=== PATIENT | female | born 1935 | race African-American/Black ===

== ENCOUNTER 2016-07-07 20:34 | Emergency (ER) | payer OTHER ==
--- NOTE | 2016-07-07 21:20 | PROVIDER DOCUMENTATION ---
HPI-Female /OB/Breast - General Chief Complaint: Female Stated Complaint: Time Seen by Provider: 07/07/16 20:55 Source: reports: patient, family (Daughter) Allergies/Adverse Reactions: Patient Allergies Allergy/AdvReac Type Severity Reaction Status Date / Time No Known Allergies Allergy Verified 07/07/16 21:51 Home Medications: Allopurinol 100 mg PO DAILY 05/09/16 Amitriptyline [Elavil] 2 tab PO HS 05/09/16 Amitriptyline [Elavil] 25 mg PO QAM 05/09/16 Amlodipine [Norvasc] 10 mg PO DAILY 05/09/16 Ergocalciferol (Vitamin D2) [Vitamin D2] 50,000 unit PO Q7D 05/09/16 Furosemide 20 mg PO DAILY 05/09/16 Gabapentin 300 mg PO BID 05/09/16 Metformin [Glucophage] 850 mg PO BID CC 05/09/16 Metoprolol [Lopressor] 50 mg PO DAILY 05/09/16 - History of Present Illness-Female /OB Nature of Presenting Problem: Pt is a 81 yof who presents to ER with CC of lower back pain, dysuria, N, headache, foul odor when urinating x1 week. Location of complaint: reports: right flank, left flank Radiation: reports: none Quality of Pain: reports: burning Severity in ED: reports: mild Onset/Duration: reports: 1 week ago Timing: reports: still present Vaginal Symptoms: reports: foul odor, itching, other (burning urination) Vaginal Bleeding Amount: None Urinary Symptoms: reports: dysuria, hematuria, hesitancy, retention, low back pain Associated Symptoms: reports: back/neck pain, nausea. denies: fatigue, fever/ chills, vomiting Review of Systems - Adult - REVIEW OF SYSTEMS - ADULT Constitutional: denies: chills, fever, fatique Eyes: reports: no symptoms reported Ears, Nose, Mouth & Throat: reports: no symptoms reported Cardiovascular: reports: no symptoms reported Respiratory: reports: no symptoms reported Gastrointestinal: reports: nausea. denies: abdominal pain, hematemesis, constipation, diarrhea, difficulty swallowing, frequent heartburn, poor appetite , rectal bleeding, vomiting Genitourinary: reports: dysuria, flank pain, hematuria, urinary retention, other (burning urination; foul odor when urinating) Musculoskeletal: reports: no symptoms reported Integumentary: reports: no symptoms reported Neurological: reports: no symptoms reported Psychiatric: reports: no symptoms reported Endocrine: reports: no symptoms reported Hematologic/Lymphatic: reports: no symptoms reported Allergic/Immunologic: reports: no symptoms reported All Other Systems: Reviewed and Negative Past History - Adult - PAST MEDICAL HISTORY-ADULT Review of Records: reports: Nursing Assessment Review, Medications Reviewed - IMMUNIZATION STATUS Childhood Immunizations: See Nurse Assessment Flu Vaccine: See Nurse Assessment Physical Exam-General - PHYSICAL EXAM-ADULT Initial Vital Signs Reviewed: Yes - CONSTITUTIONAL General Appearance: appears well, alert, mild distress - RESPIRATORY Respiratory: chest non-tender, lungs clear, normal breath sounds - CARDIOVASCULAR Cardiovascular: normal peripheral pulses, regular rate, rhythm - LYMPHATIC Lymphatic: no adenopathy - MUSCULOSKELETAL Back Exam: no vertebral tenderness, CVA tenderness (bilateral) Extremity: normal range of motion, non-tender, normal gait - SKIN Integumentary: normal color, normal turgor, warm/dry - NEUROLOGIC Neurologic: grossly normal, no motor/sensory deficits - PSYCHIATRIC Psych/Mental Status: normal mood/affect, normal thought content, normal thought process, oriented x 3 Progress - PLAN OF CARE/RESULTS Progress/Plan/Lab Results: Vital Signs - 24 hr 07/07/16 20:38 Temperature 97.3 F L Pulse Rate 57 L Respiratory 18 Rate Blood Pressure 168/56 O2 Sat by Pulse 98 Oximetry Orders Category Date Time Status FSBS/Accucheck Result NOW Care 07/07/16 20:55 Active UA NIMS W/REFLEX CULT [URINALYSIS] Stat Lab 07/07/16 21:55 Completed CefTRIAXONE [Rocephin] Med 07/07/16 22:37 Once 1 gm IM NOW ONE Lidocaine 1% Pf [Xylocaine-Mpf 1%] Med 07/07/16 22:37 Once 5 ml INJ NOW ONE Laboratory Tests 07/07/16 21:55 Urine Source CATH Urine Color BROWN Urine Turbidity CLEAR Urine pH 5.0 Ur Specific [place] 1.016 Urine Protein NEGATIVE Ur Glucose (Stick) NEGATIVE Ur Ketones (Stick) NEGATIVE Urine Blood NEGATIVE Urine Nitrite POSITIVE A Urine Bilirubin NEGATIVE Urobilinogen Dipstick 2 A Urine Leukocytes NEGATIVE Urine WBC (Auto) <10 Urine RBC (Auto) <10 U Epithel Cells (Auto) <10 Urine Bacteria (Auto) NEGATIVE Departure - Departure Time of Disposition Order: 22:37 DIAGNOSIS: UTI (urinary tract infection) Qualifiers: Urinary tract infection type: site unspecified Hematuria presence: with hematuria Qualified Code(s): N39.0 - Urinary tract infection, site not specified ; R31.9 - Hematuria, unspecified Disposition: HOME 01 Certified Medical Emergency: Emergent Condition: Stable Additional Instructions: ED Follow Up Instructions: You have been treated by a care provider in the Emergency Department. These instructions are being provided to you so you can have an understanding of how to care for yourself upon discharge. Upon discharge from the Emergency Department, you are responsible for making arrangements for follow-up care by a physician of your choice. Take all prescribed medications as directed. Return to the Emergency Department immediately for any new or worsening symptoms. You may call the Physician Referral phone number at [phone] to obtain a list of Physicians who are taking new patients. Attestation - Scribe Verification/Attestation Scribe:: Abebe Gonzalez Acting as Scribe for:: Gunner Barger Scribe documention review:: This chart was documented by a scribe and accurately reflects the service the provider performed and the decisions made by the provider.
[2016-07-07 22:05] LABS: URINE MICRO REVIEW NEEDED? NO; URINE SOURCE CATH
[2016-07-07 22:19] LABS: BILIRUBIN URINE NEGATIVE (NEGATIVE); BLOOD URINE NEGATIVE (NEGATIVE); COLOR BROWN; GLUCOSE URINE NEGATIVE (NEGATIVE); LEUKOCYTES URINE NEGATIVE (NEGATIVE); NITRITE URINE POSITIVE (NEGATIVE); PROTEIN URINE NEGATIVE (NEGATIVE); SP GRAVITY URINE 1.016; TURBIDITY URINE CLEAR (CLEAR); UROBILINOGEN URINE 2 mg/dL (NORMAL)
[2016-07-07 22:21] LABS: UR EPITHELIAL CELLS <10 /HPF (<10); URINE BACTERIA NEGATIVE /HPF; URINE CULTURE NEEDED? YES; URINE RBC <10 /HPF (<10); URINE WBC <10 /HPF (<10)
[2016-07-07] MEDS ORDERED: XYLOCAINE-MPF 1% INJ ONE (22:37)
[2016-07-07] MEDS ORDERED: ROCEPHIN IM ONE (22:37)
[2016-07-07] MEDS ORDERED: TYLENOL PO ONE (22:43)
[2016-07-07 23:05] VITALS: BP 117/39
== END 2016-07-07 23:27 | disposition home or self-care (01) ==
LOC: ED 20:34
DX: N39.0 Urinary tract infection, site not specified (principal); R31.9 Hematuria, unspecified; R30.0 Dysuria; M54.5 Low back pain; R39.11 Hesitancy of micturition; R33.9 Retention of urine, unspecified; R11.0 Nausea; R82.90 Unspecified abnormal findings in urine; Z79.899 Other long term (current) drug therapy; Z79.01 Long term (current) use of anticoagulants
CPT/HCPCS: 81001; 82948; 87088; 96372; J0696

== ENCOUNTER 2018-11-22 05:08 | Inpatient (IN) ==
[2018-11-14 09:09] LABS: HEMATOCRIT 34.4 % (37.0-47.0); MCH 31.9 PG (27-31); MCV 99.7 FL (81-99); MPV 10.9 FL (7.4-10.4); RBC 3.45 XMIL (4.2-5.4); RDW 14.4 % (11.5-14.5); WBC 7.43 X1000 (4.8-10.8)
--- NOTE | 2018-11-14 09:22 | EKG Report ---
Test Performed on : 11/14/2018 08:28:36 AM Test Reason : pat Blood Pressure : / mmHG Vent. Rate : 064 BPM Atrial Rate : 064 BPM P-R Int : 250 ms QRS Dur : 088 ms QT Int : 434 ms P-R-T Axes : 020 011 157 degrees QTc Int : 447 ms Sinus rhythm. with 1st degree AV block. Low voltage QRS Cannot rule out Anterior infarct (cited on or before 11-OCT-2017) Abnormal ECG When compared with ECG of 11-OCT-2017 09:48, Nonspecific T wave abnormality now evident in Lateral leads Confirmed by Edgardo VILLAFUERTE, Gerard Heath ([id number]) on 11/15/2018 10:54:07 AM
[2018-11-14 09:41] LABS: AGAP 12; BUN 25 mg/dL (8-22); CHLORIDE 103 mmol/L (98-107); COSMO 288; ESTIMATED GFR > 60; GLUCOSE 101 mg/dL (70-104); POTASSIUM 3.7 mmol/L (3.5-5.1); SODIUM 142 mmol/L (136-145); TCO2 27 mmol/L (25-35)
[2018-11-22] MEDS ORDERED: PEPCID ONE (05:42)
[2018-11-22] MEDS ORDERED: MEFOXIN 2 GM/NS 2 GM/50 ML IVPB ONE (05:42)
[2018-11-22] MEDS ORDERED: LR 1,000 ML ONE ×3 (05:42→09:54)
[2018-11-22] MEDS ORDERED: FENTANYL ONE (06:29)
[2018-11-22] MEDS ORDERED: DIPRIVAN 1% ONE (06:30)
[2018-11-22] MEDS ORDERED: SODIUM CHLORIDE 0.9% ONE (06:47)
[2018-11-22] MEDS ORDERED: XYLOCAINE 1% ONE (06:48)
[2018-11-22] MEDS ORDERED: MARCAINE 0.25% PF/EPI 1:200,000 ONE (06:48)
[2018-11-22] MEDS ORDERED: QUELICIN (DOSE) ONE (07:12)
[2018-11-22] MEDS ORDERED: NEO-SYNEPHRINE ONE (07:12)
[2018-11-22] MEDS ORDERED: XYLOCAINE-MPF 2% ONE (07:12)
[2018-11-22] MEDS ORDERED: SODIUM CHLORIDE 0.9% 20 ML ONE (07:12)
[2018-11-22] MEDS ORDERED: ZOFRAN ONE (07:12)
[2018-11-22] MEDS ORDERED: ZEMURON ONE ×2 (07:12→07:28)
[2018-11-22] MEDS ORDERED: ROBINUL ONE ×3 (07:12→07:16)
[2018-11-22 07:14] LABS: ALB/GLOB RATIO 1.2; ALBUMIN 4.1 g/dL (3.5-5.0); CALCIUM 9.8 mg/dL (8.8-10.2); CREATININE 1.1 mg/dL (0.5-0.9); POTASSIUM 4.1 mmol/L (3.5-5.1); TOTAL BILIRUBIN 0.41 mg/dL (0.20-1.00); TOTAL PROTEIN 7.6 g/dL (6.3-8.3)
[2018-11-22] MEDS ORDERED: EPHEDRINE ONE (07:22)
[2018-11-22] MEDS ORDERED: NEOSTIGMINE ONE (08:14)
[2018-11-22 09:49] LABS: URINE SOURCE CATH
[2018-11-22] MEDS: DILAUDID ONE ×4 (09:55→10:15)
[2018-11-22 09:57] LABS: BILIRUBIN URINE NEGATIVE (NEGATIVE); BLOOD URINE NEGATIVE (NEGATIVE); COLOR YELLOW; GLUCOSE URINE NEGATIVE (NEGATIVE); KETONE URINE NEGATIVE (NEGATIVE); LEUKOCYTES URINE NEGATIVE (NEGATIVE); NITRITE URINE NEGATIVE (NEGATIVE); PROTEIN URINE NEGATIVE (NEGATIVE); TURBIDITY URINE CLEAR (CLEAR); UROBILINOGEN URINE NORMAL (NORMAL)
[2018-11-22 09:58] LABS: UR EPITHELIAL CELLS <10 /HPF (<10); URINE BACTERIA NEGATIVE /HPF; URINE RBC <10 /HPF (<10); URINE WBC <10 /HPF (<10)
[2018-11-22] MEDS: MORPHINE IV PRN ×3 (11:18→22:39)
[2018-11-22] MEDS: LR 1,000 ML IV SCH (12:05)
--- NOTE | 2018-11-22 12:50 | EMERGENCY ROOM SUMMARY ---
HISTORY OF PRESENT ILLNESS: This is an 83-year-old black female who came in for a cholecystectomy for cholecystitis, I think, and cholelithiasis, and ended up needing an open procedure. I think she had some scar tissue from previous colectomy in the past and so started laparoscopic and went to an open procedure. PAST MEDICAL HISTORY: 1. Hypertension. 2. Diabetes mellitus type 2, I believe. PAST SURGICAL HISTORY: 1. Question whether she has had a right partial colectomy. 2. She has had a hysterectomy. 3. Bilateral salpingo-oophorectomy. ALLERGIES: No known drug allergies. FAMILY HISTORY: There is no history in old reports of family related other than some diabetes. REVIEW OF SYSTEMS: She was unable to give review of systems and is very lethargic at this time. She is postoperative. I do not see history of weight loss, fever. Questionable subjective fever. HEENT: No change in vision or hearing acuity. Respiratory: No increased work of breathing or dyspnea. Cardiovascular: No chest pain or tachy palpitations. Endocrinologic/Hematologic: No significant history. Neurologic: No new focal complaints. PHYSICAL EXAMINATION: Vital Signs: She is in ICU bed 2. She is afebrile, temperature 97.1 degrees, pulse 62, respirations 18, blood pressure 149/68. HEENT: Pupils are equal and round. Lungs: Clear in all lung persaud. Cardiovascular: Regular rhythm and rate without murmur or S3. Weight 242 today. Urine output looks to be good so far today, about 1000 L so. ASSESSMENT AND PLAN: 1. Status post open cholecystectomy. Continue to give IV fluids and watch her hemodynamics. 2. History of diabetes mellitus type 2. Will check pattern sugars. 3. History of hypertension. Of course, follow her hemodynamics and blood pressure. They look stable at this point. She is getting lactated Ringer's at 50 mL an hour, gets morphine for pain. She is on heparin for DVT prophylaxis 5000 units subcutaneously q.8 hours and also has hydrocodone ordered for pain. REVIEW OF LABS: Sodium 142, potassium 4.1, chloride 102, BUN 21, creatinine 1.1, albumin 4.1. Nutrition looks good. Transaminases: AST 18, ALT is 8. So I am going to put her on pattern blood sugars, put her on a sliding scale. I think it would be worthwhile just to check T4, TSH, B12, and folate. We will check hemoglobin A1c in the morning. It might be worthwhile to check a lipid profile too. cc: MD Heladio Henry MD
--- NOTE | 2018-11-22 13:24 | OPERATIVE NOTE ---
PROCEDURE DATE: 11/22/2018 PREOPERATIVE DIAGNOSIS: Cholelithiasis. POSTOPERATIVE DIAGNOSES: 1. Cholelithiasis. 2. Hostile abdomen with dense adhesions. PROCEDURE: Laparoscopic converted to open cholecystectomy. SURGEON: Heladio Acosta MD WIRE LOOP MACHINE OPERATOR: MD Dr. Mary Montes assisted with the entirety of the case. ANESTHESIA: General endotracheal. INTRAOPERATIVE FINDINGS: Dense adhesions. COMPLICATIONS: None apparent at this time in this dictation. ESTIMATED BLOOD LOSS: 150 mL. SPECIMENS REMOVED: Gallbladder. BRIEF HISTORY: An 83-year-old female who presented with elevated liver function tests and cholelithiasis, felt that she would benefit from a cholecystectomy. The risks, benefits, and alternatives were discussed including, but not limited to bleeding, infection, risk of common bile duct injury, bile leak, injury to other organs and possible conversion to open were discussed and documented in the chart. All questions answered. DESCRIPTION OF PROCEDURE: After informed consent was obtained, the patient brought to the operative theater, transferred to the operative table, placed in supine position. General endotracheal anesthesia was then performed without complication. A formal time- out was then performed confirming patient, date, procedure. All were in agreement. At that time, attention was given to the abdomen. We initially tried to make an infraumbilical incision using Optiview technique, but we were unable to get to the fascia, given her abdominal girth. We then went to the right upper quadrant in the epigastric subxiphoid region. Initially, tried to insert a 5 mm trocar in this area. There was some concern on placement of the trocar that we may have gotten into the abdomen and injured the bowel. This was not very obvious, but given the concern of her body habitus and her scar tissue, I felt the safe thing to do would be to convert to open. At this point, Dr. Hernandez entered the case. We made a standard subcostal incision through the muscles into the abdomen. She had dense adhesions from her previous surgeries. It was very hard to see into the abdomen. Her gallbladder was identified and appeared to be grossly normal without cholecystitis. We examined all the bowel in the stomach, the colon and the small bowel in the area where the trocar was placed, I did not see any bowel injury. There were some serosal tear secondary to the adhesions, but we sewed these up primarily with imbrication. Again, I did not see any obvious injury. I did not see any succus or stool in the abdomen. We did irrigate the abdomen copiously and examined thoroughly, but did not see any other signs of injury. We examined for close to an hour to try to see if we could find any other injury, but again did not see any. We did find what felt like lymphadenopathy around what likely is the superior mesenteric vein and artery and potentially close to the aorta. It was densely adhered to the surrounding bowel and the vasculature. I did not think it would be safe to try to remove this or biopsy this, so we elected to leave it alone and probably investigate this at a later point. We then turned our attention to the gallbladder. The liver appeared normal. We grasped the gallbladder did the top- down dissection all the way down to the cystic duct and cystic artery, doubly clipped and ligated the cystic duct and dissected the gallbladder off. We removed it, irrigated out the abdomen. We did place multiple clips on the cystic duct and cystic artery. There was no drainage of bile. We irrigated out the abdomen copiously. Again, we examined the abdomen for any kind of possible signs of bowel injury, did not see any, throughout the entirety of the case I did not see any succus in the abdomen or stool, or gastric contents, or bile. We therefore felt as though we examined the bowel in the area thoroughly enough. We elected to then close the fascia in 2 layers starting on either side of the incision with good fascial closure, although her fascia was somewhat tenuous by the very nature. We then closed the skin with stella. Given the patient's age, comorbidities, we will admit the patient to the ICU. I updated the family on the procedure. cc: MD SELVIN Aranda
[2018-11-22] MEDS: HUMULIN R SUBQ SCH ×2 (15:52→20:22)
--- NOTE | 2018-11-22 20:01 | GENERAL SURGERY PROGRESS NOTE ---
DATE: 11/22/2018 SUBJECTIVE: The patient is doing okay after surgery. Nursing staff reports no major issues. She has a little bit of abdominal discomfort, but this seems to be improving. ASSESSMENT AND PLAN: We will need to monitor her respiratory status in the intensive care unit and her abdominal exam, given the concern for potential bowel injury, even though we did not find one during the operation. We will monitor her closely. cc: Heladio Acosta MD
[2018-11-22] MEDS: HEPARIN SUBQ SCH (20:21)
[2018-11-22] MEDS: ZOFRAN IV PRN (20:26)
[2018-11-23] MEDS: NORCO-10 PO PRN ×2 (00:03→08:55)
[2018-11-23] MEDS: HEPARIN SUBQ SCH ×3 (05:11→22:34)
[2018-11-23] MEDS: ZOFRAN IV PRN ×2 (05:12→11:48)
[2018-11-23 05:45] LABS: BASO# 0.01 X1000 (0.0-0.2); BASO% 0.1 % (0.0-0.8); EOS# 0.01 X1000 (0.0-0.7); EOS% 0.1 % (0.0-10.0); HEMATOCRIT 31.7 % (37.0-47.0); HEMOGLOBIN 10.2 g/dL (12.0-16.0); IMM GRAN# 0.02 X1000 (0.0-0.04); IMM GRAN% 0.2 % (0.0-0.5); LYMPH# 2.07 X1000 (1.2-3.4); LYMPH% 20.9 % (20.5-51.1); MCH 31.3 PG (27-31); MCHC 32.2 g/dL (33-37); MCV 97.2 FL (81-99); MONO# 1.05 X1000 (0.11-0.59); MONO% 10.6 % (1.7-9.3); MPV 10.8 FL (7.4-10.4); NEUT# 6.75 X1000 (1.4-6.5); NEUT% 68.1 % (42.2-75.2); PLT 208 X1000 (130-400); RBC 3.26 XMIL (4.2-5.4); RDW 14.2 % (11.5-14.5); WBC 9.91 X1000 (4.8-10.8)
[2018-11-23 06:21] LABS: FREE T4 0.91 ng/dL (0.93-1.70); TSH 3.97 uIUmL (0.27-4.20)
[2018-11-23 06:22] LABS: HEMOGLOBIN A1C 5.8 % (4.8-6.0)
[2018-11-23] MEDS: LR 1,000 ML IV SCH (06:40)
[2018-11-23 07:01] LABS: AGAP 12; ALB/GLOB RATIO 0.9; ALKALINE PHOSPHATASE 66 U/L (32-104); BUN 13 mg/dL (8-22); CALCIUM 8.6 mg/dL (8.8-10.2); CHLORIDE 102 mmol/L (98-107); CHOLESTEROL 155 mg/dL (0-200); COSMO 280; ESTIMATED GFR > 60; GLUCOSE 148 mg/dL (70-104); GOT 39 U/L (10-30); GPT 16 U/L (10-36); HDL 54 mg/dL (45-65); LDL 79 mg/dL; MAGNESIUM 1.6 mg/dL (1.5-2.7); POTASSIUM 4.4 mmol/L (3.5-5.1); SODIUM 139 mmol/L (136-145); TCO2 25 mmol/L (25-35); TOTAL PROTEIN 6.3 g/dL (6.3-8.3); TRIGLYCERIDES 111 mg/dL (35-135); VLDL 22 mg/dL
[2018-11-23] MEDS: HUMULIN R SUBQ SCH ×4 (07:06→22:18)
--- NOTE | 2018-11-23 08:11 | PROGRESS NOTE ---
DATE: 11/23/2018 SUBJECTIVE: Ms. Elizabeth had a pretty good night. She was using her incentive spirometry and breathing comfortably. OBJECTIVE: Vital signs: Remains afebrile, temperature 98.1 degrees, pulse 67, respirations 20, blood pressure 136/54. HEENT: Pupils are equal and round. Lungs: Clear anterolateral. Cardiovascular: Regular rate without murmur or S3. Abdomen: Soft. Genitourinary: Urine output is 2200 mL. LABORATORY DATA: Blood sugar 139, 148. ASSESSMENT AND PLAN: 1. Status post open cholecystectomy. Seems to be doing well. 2. Diabetes mellitus type 2. Continue to follow sugars. 3. Hypertension. Continue to follow blood pressures. REVIEW OF CURRENT ORDERS: She is on heparin 5000 units subcutaneously q.8 hours, getting lactated Ringer's at 50 mL an hour, morphine 2 to 4 mg IV q.4 hours p.r.n. pain. LABORATORY DATA: From this morning, white count 9910, hematocrit 31, platelet count 208,000. Sodium 139, potassium 4.4, chloride 102, BUN 13, creatinine 1.0. Good urine output. Good renal function. cc: Jaime Vela MD
[2018-11-23] MEDS: MEFOXIN 1 GM/NS 1 GM/50 ML IVPB IV SCH ×2 (09:23→17:47)
--- NOTE | 2018-11-23 22:52 | GENERAL SURGERY PROGRESS NOTE ---
DATE: 11/23/2018 SUBJECTIVE: The patient is doing okay, just feels a little sore in her abdomen. No nausea or vomiting. She is tolerating clear liquids. OBJECTIVE: T-max 100.8 at 11:00 last night. T 98.4 this morning. Pulse, blood pressure, respiratory rate, and O2 saturation all within normal limits. Urine output 1500 mL yesterday. General: She is awake, alert, oriented x4. No acute distress. CV: Regular rate and rhythm. Respiratory: Bilateral breath sounds. No work of breathing. GI: Soft, minimally tender. Incision is clean, dry, intact. LABORATORY: White blood cell count 9.9, hemoglobin 10. Electrolytes reviewed and unremarkable. LFTs only notable for AST of 39. ASSESSMENT AND PLAN: An 83-year-old female, postoperative day 1 open cholecystectomy. We will advance her to a diabetic diet today. Mobilize her to a chair. Start Mefoxin for 24 hours for prophylaxis given the difficulty of the operation yesterday and move her to a regular room. cc: MD Jaime Montes MD
[2018-11-24] MEDS: ZOFRAN IV PRN ×2 (00:47→20:04)
[2018-11-24] MEDS: MEFOXIN 1 GM/NS 1 GM/50 ML IVPB IV SCH ×3 (00:47→16:49)
[2018-11-24] MEDS: LR 1,000 ML IV SCH ×2 (04:22→22:30)
[2018-11-24] MEDS: HEPARIN SUBQ SCH ×3 (05:35→20:04)
[2018-11-24] MEDS: NORCO-10 PO PRN (05:36)
[2018-11-24 06:47] LABS: BASO# 0.01 X1000 (0.0-0.2); BASO% 0.1 % (0.0-0.8); EOS# 0.01 X1000 (0.0-0.7); EOS% 0.1 % (0.0-10.0); HEMATOCRIT 28.7 % (37.0-47.0); HEMOGLOBIN 9.2 g/dL (12.0-16.0); LYMPH# 1.83 X1000 (1.2-3.4); LYMPH% 14.9 % (20.5-51.1); MCH 31.6 PG (27-31); MCHC 32.1 g/dL (33-37); MCV 98.6 FL (81-99); MONO% 10.6 % (1.7-9.3); MPV 11.1 FL (7.4-10.4); NEUT# 9.13 X1000 (1.4-6.5); NEUT% 74.3 % (42.2-75.2); PLT 189 X1000 (130-400); RBC 2.91 XMIL (4.2-5.4); RDW 14.3 % (11.5-14.5); WBC 12.28 X1000 (4.8-10.8)
[2018-11-24 07:14] LABS: CALCIUM 8.7 mg/dL (8.8-10.2); CREATININE 1.1 mg/dL (0.5-0.9); POTASSIUM 4.1 mmol/L (3.5-5.1)
[2018-11-24] MEDS: HUMULIN R SUBQ SCH ×3 (11:47→22:00)
[2018-11-24] MEDS: NORCO-5 PO PRN ×2 (12:02→16:50)
--- NOTE | 2018-11-24 13:51 | PROGRESS NOTE ---
DATE: 11/24/2018 SUBJECTIVE: Ms. Elizabeth is sitting up in a chair. Still has a Gentile catheter in. Daughter is helping her. Seems to be doing well. OBJECTIVE: Vital Signs: Temperature 97.7 degrees, pulse 83, respirations 20, blood pressure 126/45. HEENT: Pupils are equal and round. Lungs: Clear in all lung persaud. Cardiovascular: Regular rhythm and rate without murmur or S3. Abdomen: Soft, nondistended. Wound and stella in incision look good. ASSESSMENT AND PLAN: 1. An 83-year-old female postoperative day 2 for open cholecystectomy. Advancing her diet. Started Mefoxin for 24 hours for prophylaxis given the difficulty with her operation. 2. Diabetes mellitus, type 2. Sugars under good control. 3. Hypertension. Blood pressure is controlled. REVIEW OF HER ORDERS: I do not see any change. She is on cefoxitin 1 g IV q.8 h., heparin 5000 units subcutaneously q.8 h., and lactated Ringer's 50 mL an hour. cc: Jaime Vela MD
--- NOTE | 2018-11-24 14:26 | GENERAL SURGERY PROGRESS NOTE ---
DATE: 11/24/2018 SUBJECTIVE: The patient had a little bit of a restless night and has been coughing some. OBJECTIVE: Vital signs: T-max 100.1 degrees. Current temperature 98.8 degrees. Otherwise vital signs are stable. Urine output 855. General: She is awake, alert, and oriented x3. No acute distress. CV: Regular rate and rhythm. Respiratory: Bilateral breath sounds. No work of breathing. GI: Soft. Minimally tender. Incision is clean, dry, and intact. LABORATORY: White cell count 12, hemoglobin 9, hematocrit 28.7. ASSESSMENT AND PLAN: This is an 83-year-old female postoperative day 2 open cholecystectomy. Overall she is doing okay. We will continue her antibiotics another 24 hours. Start incentive spirometry and ambulation and advance her to a soft diet as tolerated. cc: MD Jaime Montes MD
[2018-11-24] MEDS: PHENERGAN IM PRN (22:23)
[2018-11-25] MEDS: MEFOXIN 1 GM/NS 1 GM/50 ML IVPB IV SCH ×3 (00:38→17:38)
[2018-11-25] MEDS: HEPARIN SUBQ SCH ×3 (06:47→22:19)
[2018-11-25] MEDS: NORCO-5 PO PRN (06:47)
[2018-11-25] MEDS: HUMULIN R SUBQ SCH ×4 (06:52→22:17)
[2018-11-25] MEDS: GLUCOPHAGE PO SCH ×2 (09:29→17:37)
[2018-11-25] MEDS: LASIX PO SCH (09:29)
[2018-11-25] MEDS: KLOR-CON PO SCH (09:29)
[2018-11-25] MEDS: NEURONTIN PO SCH ×3 (09:29→17:37)
--- NOTE | 2018-11-25 11:32 | PROGRESS NOTE ---
DATE: 11/25/2018 SUBJECTIVE: Ms. Elizabeth is sitting up in a chair. Her bowels are rumbling. She is actually on the commode right now. OBJECTIVE: Temperature 98.9 degrees, pulse 78, respirations 20, blood pressure 126/52. Pupils are equal and round. Lungs are clear in all lung persaud. Cardiovascular Examination: Regular rhythm and rate without murmur or S3. Urine output about 2300 mL. ASSESSMENT AND PLAN: 1. Postoperative day #3 from open cholecystectomy. Overall doing well. Continue present antibiotics, incentive spirometry, and ambulation. She is advanced to a soft diet. They are going to check her bladder and see if she needs Gentile catheter back in. 2. Diabetes mellitus type 2. Sugar is under good control. 3. Hypertension. Blood pressure controlled. REVIEW OF ORDERS: She is on heparin 5000 units subcutaneously q.8 hours, Norvasc 10 mg a day, Lasix 40 mg a day, Neurontin 300 mg t.i.d., lactated Ringer 50 mL every hour, cefoxitin 1 g q.8 hours, continue that for now, Glucophage 500 mg b.i.d., metoprolol succinate 50 mg daily, potassium chloride 10 mEq daily, Prilosec 20 mg daily. She gets morphine 2 to 4 mg IV q.4 hours p.r.n. pain. cc: Jaime Vela MD
--- NOTE | 2018-11-25 11:53 | GENERAL SURGERY PROGRESS NOTE ---
DATE: 11/25/2018 SUBJECTIVE: Feels okay. Passing gas. She is tolerating some diet. She had some nausea last night, better with Phenergan. She has been unable to void, apparently since the catheter came out yesterday. No fevers. No tachycardia. OBJECTIVE: Abdomen is obese. Incisions are intact. Is appropriately tender at her incision but no peritonitis. No new labs this morning, glucose 110. ASSESSMENT/PLAN: An 83-year-old female status post open cholecystectomy by Dr. Acosta. Her abdomen is soft. I have asked the nurse to replace the Gentile. She has been unable to void. We will see how she does over the next day or so. I have encouraged her to be out of bed and moving about. She is sitting at the bedside commode today. cc: MD Jaime Paula MD
[2018-11-25] MEDS: TOPROL XL PO SCH (13:28)
[2018-11-25] MEDS: NORVASC PO SCH (13:29)
[2018-11-26] MEDS: MEFOXIN 1 GM/NS 1 GM/50 ML IVPB IV SCH ×4 (01:13→23:43)
[2018-11-26] MEDS: NORCO-5 PO PRN ×2 (05:30→18:56)
[2018-11-26] MEDS: PRILOSEC PO SCH ×2 (05:31→07:31)
[2018-11-26] MEDS: HEPARIN SUBQ SCH ×3 (05:31→21:41)
[2018-11-26] MEDS: HUMULIN R SUBQ SCH ×3 (07:50→15:54)
--- NOTE | 2018-11-26 08:34 | GENERAL SURGERY PROGRESS NOTE ---
DATE: 11/26/2018 SUBJECTIVE: Patient seems to be doing alright. She does have a low-grade fever to 100.9 degrees. She is complaining of left leg pain. She is tolerating her diet. No real significant abdominal pain besides appropriate postoperative pain. She is having bowel movements. She is passing gas. OBJECTIVE: Vital Signs: Most recent temperature 100.9 degrees. Remainder of vitals have been stable. General: No acute distress. Cardiovascular: Regular rate and rhythm. Lungs: Grossly clear. Abdomen: Soft, appropriately tender. No peritoneal signs. Incision seems to be healing okay. Extremities: The left leg seems to be slightly swollen compared to the right. ASSESSMENT AND PLAN: An 83-year-old female status post laparoscopic, converted to open cholecystectomy. Postop state. At this time she does have a low-grade fever. We will continue incentive spirometer. We will get an ultrasound of her leg given the discrepancy. We will also try to remove her Gentile catheter, but check a urinalysis on it. She is on antibiotics. She is on a regular diabetic diet. She does have SCDs ordered although she did not actively have them on. She is getting heparin 3 times a day. We will continue to monitor and follow up with these results. cc: MD Jaime Aranda MD
[2018-11-26] MEDS: MORPHINE IV PRN ×3 (10:05→23:42)
[2018-11-26] MEDS: GLUCOPHAGE PO SCH ×2 (10:07→16:55)
[2018-11-26] MEDS: KLOR-CON PO SCH (10:07)
[2018-11-26] MEDS: LASIX PO SCH (10:07)
[2018-11-26] MEDS: TOPROL XL PO SCH ×2 (10:07→14:54)
[2018-11-26] MEDS: NORVASC PO SCH ×2 (10:07→14:54)
[2018-11-26] MEDS: NEURONTIN PO SCH ×3 (10:07→21:41)
[2018-11-26 10:20] LABS: URINE SOURCE CATH
[2018-11-26 10:24] LABS: BILIRUBIN URINE NEGATIVE (NEGATIVE); BLOOD URINE SMALL (NEGATIVE); COLOR YELLOW; GLUCOSE URINE NEGATIVE (NEGATIVE); KETONE URINE NEGATIVE (NEGATIVE); LEUKOCYTES URINE SMALL (NEGATIVE); NITRITE URINE NEGATIVE (NEGATIVE); PROTEIN URINE 70 mg/dL (NEGATIVE); SP GRAVITY URINE 1.021; TURBIDITY URINE CLEAR (CLEAR); UROBILINOGEN URINE 3 mg/dL (NORMAL)
[2018-11-26 10:25] LABS: UR EPITHELIAL CELLS <10 /HPF (<10); URINE BACTERIA NEGATIVE /HPF; URINE RBC <10 /HPF (<10); URINE WBC <10 /HPF (<10)
--- NOTE | 2018-11-26 13:23 | Diag Imaging Result Doc PS360 ---
LOWER LEG-LEFT - 11/26/2018 INDICATION: leg/ankle pain TECHNIQUE: Two views COMPARISON: None FINDINGS: Bones are intact and normally aligned. There is a left knee prosthesis in good position. No complication here. There is some calcaneal spurring at the Achilles tendon insertion. IMPRESSION: Calcaneal degenerative spurring. Electronically signed by Rj Barakat 11/26/2018 1:20 PM
--- NOTE | 2018-11-26 13:57 | PROGRESS NOTE ---
DATE: 11/26/2018 SUBJECTIVE: Ms. Elizabeth is resting in bed. She is comfortable. No abdominal pain. She has had a lot of gas, passed a lot of gas but no bowel movement yet. Remains afebrile. PHYSICAL EXAMINATION: Temperature 99.3 degrees, pulse 80, respirations 18, blood pressure 140/56. Pupils are equal and round. Lungs are clear in all lung persaud anterolateral. Cardiovascular Examination: Regular rhythm and rate without murmur or S3. Abdomen is soft. Positive bowel sounds in all quadrants. Urine output was 2000 mL. DIAGNOSTIC DATA: She had a lower extremity x-ray, calcaneus degenerative spurring. Her feet hurt when she when she puts pressure on them at this time. ASSESSMENT AND PLAN: 1. Status post laparoscopic and then converted to open cholecystectomy. Does have a low-grade fever. Continue incentive spirometry. Try to remove the catheter when ultrasound shows the bladder is emptying. Continue sequential compression devices. 2. Diabetes mellitus type 2. Sugar is under good control. 3. Hypertension. Blood pressure under good control. LABS: From the reviewed. Hematocrit 28, hemoglobin 9.2. Blood sugars 114, 123, 118. REVIEW OF ORDERS: Getting heparin 5000 units subcutaneously q.8 hours, Norvasc 10 mg a day, Lasix 40 mg a day, Neurontin 300 mg 3 times a day, hydrocodone 5 q.12 hours p.r.n. pain, lactated Ringer's 50 mL an hour, cefoxitin 1 g IV q.8, Glucophage 500 mg b.i.d., metoprolol extended release 50 mg daily. She gets potassium chloride 10 mEq extended release daily. Her diet has been advanced to a diabetic diet. Appears to be making good progress. cc: Jaime Vela MD
[2018-11-26] MEDS: LR 1,000 ML IV SCH (17:09)
[2018-11-26] MEDS: ZOFRAN IV PRN (17:09)
[2018-11-27] MEDS ORDERED: TYLENOL PO ONE (00:01)
[2018-11-27] MEDS: HUMULIN R SUBQ SCH ×5 (00:32→21:41)
[2018-11-27] MEDS: MEFOXIN 1 GM/NS 1 GM/50 ML IVPB IV SCH ×4 (00:36→21:33)
[2018-11-27] MEDS: NORCO-5 PO PRN ×4 (06:02→21:33)
[2018-11-27] MEDS: HEPARIN SUBQ SCH ×3 (06:02→21:33)
[2018-11-27] MEDS: PRILOSEC PO SCH (06:03)
--- NOTE | 2018-11-27 07:42 | GENERAL SURGERY PROGRESS NOTE ---
DATE: 11/27/2018 SUBJECTIVE: The patient seems to be doing okay. She has some left leg pain. Preliminary report on the ultrasound does not show a DVT. There may be a ruptured Rios cyst. She did have an extremity x-ray, which did not show any fracture. Otherwise, the patient is doing about the same. OBJECTIVE: Vital Signs: The patient's current temperature is 98.2 degrees, but a temperature max of 102.6. Remainder of vital signs have been stable. General: No acute distress. Cardiovascular: Regular rate and rhythm. Lungs: Grossly clear. Abdomen: Soft. Appropriately tender in the subcostal incision. No peritoneal signs. LABORATORY DATA: None this morning as of yet. ASSESSMENT AND PLAN: An 83-year-old female status post open cholecystectomy. Open cholecystectomy. At this time, the patient does have a postoperative fever. Will get a chest x-ray. We will get a CT scan. Her urinalysis was not very revealing. Her ultrasound did not show deep venous thrombosis. Will continue current treatment otherwise. Will reassess her pain medicine. Will follow up with above. cc: MD Jaime Aranda MD
--- NOTE | 2018-11-27 09:36 | Diag Imaging Result Doc PS360 ---
EXAM: CHEST-PORTABLE HISTORY: fever TECHNIQUE: Chest single view COMPARISON: 11/17/2017 FINDINGS: Poor inspiratory effort. The heart is enlarged. Mild central vascular distention. Atelectasis in the lung bases. No large pleural effusions. No consolidation. IMPRESSION: Cardiomegaly with mild vascular distention and basilar atelectasis Electronically signed by Santhosh Hennessy 11/27/2018 9:33 AM
[2018-11-27] MEDS: KLOR-CON PO SCH (10:29)
[2018-11-27] MEDS: NEURONTIN PO SCH ×3 (10:29→21:33)
[2018-11-27] MEDS: TOPROL XL PO SCH ×2 (10:30→10:31)
[2018-11-27] MEDS: GLUCOPHAGE PO SCH ×2 (10:30→16:21)
[2018-11-27] MEDS: NORVASC PO SCH ×2 (10:30→10:33)
[2018-11-27] MEDS: LASIX PO SCH (10:30)
--- NOTE | 2018-11-27 10:37 | Diag Imaging Result Doc PS360 ---
EXAM: CT ABD/PELVIS W/PO AND IV CON 11/27/2018 HISTORY: postoperative fever TECHNIQUE: This exam was performed using automated exposure control, adjustment of mA or kV according to patient size, and/or use of iterative reconstruction technique. COMMENT: The current examination is compared with 09/05/2017. There is subsegmental atelectasis in both lung bases particularly in the lower lobes which was not present at the time the previous study. The spleen adrenal glands pancreas and kidneys are stable in appearance compared to the previous examination. The aorta is not distended. The mesenteric and renal arteries are patent. There has been cholecystectomy since the previous study. There is a seroma/hematoma in the gallbladder fossa. There is some stool in the colon. There is no evidence of bowel obstruction. There has been partial resection of the right colon. There is no evidence of significant adenopathy. There is some questionable mucosal thickening in the gastric fundus however the stomach is not well distended. This appearance is similar to the previous study. There is fluid in the subcutaneous fat over the right lower and midabdomen which may represent hematoma formation. There is a well-circumscribed fluid collection anterior to the lower portion of the right rectus abdominis extending to the umbilicus. There is some enhancement of the almendarez of this fluid collection but no gas bubbles are present. This may represent a seroma or hematoma. It measures 7.7 cm in greatest axial dimension. Pelvis: There is gas and stool in the rectum and sigmoid colon. There is no evidence of free fluid. There has been hysterectomy. The urinary bladder is unremarkable. There are degenerative changes in both hips. There is vacuum joint phenomenon in the sacroiliac joints and at the L5-S1 level. There is apparent spinal stenosis at L3-4 and L4-5. IMPRESSION: Postsurgical changes in the anterior abdominal and pelvic wall on the right as described. Post operative seroma and/or hematoma in the gallbladder fossa. Bibasilar atelectasis. Electronically signed by Abdirizak Camacho 11/27/2018 10:35 AM
--- NOTE | 2018-11-27 12:42 | PROGRESS NOTE ---
DATE: 11/27/2018 SUBJECTIVE: Ms. Elizabeth is feeling better. She was sitting up, eating some lunch, and had no nausea, no abdominal pain. OBJECTIVE: Vital Signs: Temp 98.4 degrees, pulse 69, respirations 18, blood pressure 117/49. HEENT: Pupils are equal and round. Lungs: Clear in all lung persaud. Cardiovascular: Regular rhythm and rate without murmur or S3. Abdomen: Soft, nontender. Incision looks good. Her feet feel better, less swelling in the feet. Urine output 2200 mL. ASSESSMENT AND PLAN: 1. Status post open cholecystectomy. She did have a little postoperative fever. Repeated a chest x-ray. The lungs sound clear. Will plan to get a CT scan of the abdomen. Her ultrasound did not show any deep venous thrombosis, and she seems to be making good progress. Chest x-ray from this morning shows cardiomegaly with mild vascular distention and basilar atelectasis. 2. Diabetes mellitus type 2. Sugar is under good control. 3. Hypertension. Blood pressures look good. REVIEW OF ORDERS: Her Gentile catheter is out. She is voiding well by report. She is on Norvasc 10 mg a day, heparin 5000 units subcutaneously every 8 hours, Lasix 40 mg a day, Neurontin 300 mg 3 times a day, hydrocodone 5 mg every 4 hours p.r.n., lactated Ringer's 50 mL an hour, cefoxitin 1 gram every 8 hours, Glucophage 500 mg b.i.d., metoprolol 50 mg a day, Prilosec 20 mg a day. cc: Jaime Vela MD
[2018-11-27 14:40] LABS: I-STAT CREATININE 0.9 mg/dL (0.6-1.3)
--- NOTE | 2018-11-27 16:18 | Extremity Venous Study ---
PROCEDURE NAME: Venous U/S Left Leg - 11/26/2018 PROCEDURE: Left lower extremity venous study. DATE OF STUDY: 11/26/2018. REQUESTING PHYSICIAN: Dr. Acosta. COLLAR SETTER: Sergo. INDICATIONS: Swelling and pain, left leg. EQUIPMENT: [employer] E 9 ultrasound system with a 9 L-D transducer. FINDINGS: Images of the left lower extremity venous system comparison shot to the right common femoral vein were obtained in both sagittal and transverse planes. Doppler was used to evaluate veins for spontaneity, phasicity, respiratory excursion, and digital augmentation. RESULTS: Possible ruptured cyst in the popliteal fossa on the left side, but otherwise no acute pathology. No superficial or deep venous thrombosis noted. INTERPRETATION: Possible ruptured cyst on the left side of the popliteal fossa, but no obvious superficial or deep venous thrombosis. cc: MD Jaime Aranda MD
[2018-11-28] MEDS: HEPARIN SUBQ SCH ×3 (04:39→22:35)
[2018-11-28] MEDS: MEFOXIN 1 GM/NS 1 GM/50 ML IVPB IV SCH ×3 (04:39→14:41)
[2018-11-28] MEDS: PRILOSEC PO SCH ×2 (04:39→06:01)
[2018-11-28] MEDS: NORCO-5 PO PRN ×2 (04:39→18:49)
[2018-11-28] MEDS: HUMULIN R SUBQ SCH ×5 (06:47→22:39)
[2018-11-28 06:57] LABS: BASO# 0.02 X1000 (0.0-0.2); BASO% 0.2 % (0.0-0.8); EOS# 0.25 X1000 (0.0-0.7); EOS% 2.1 % (0.0-10.0); HEMOGLOBIN 8.2 g/dL (12.0-16.0); IMM GRAN# 0.09 X1000 (0.0-0.04); IMM GRAN% 0.8 % (0.0-0.5); LYMPH# 2.09 X1000 (1.2-3.4); LYMPH% 17.7 % (20.5-51.1); MCH 30.9 PG (27-31); MCHC 31.5 g/dL (33-37); MCV 98.1 FL (81-99); MONO# 1.22 X1000 (0.11-0.59); MONO% 10.3 % (1.7-9.3); MPV 10.5 FL (7.4-10.4); NEUT# 8.16 X1000 (1.4-6.5); NEUT% 68.9 % (42.2-75.2); PLT 262 X1000 (130-400); RBC 2.65 XMIL (4.2-5.4); RDW 13.8 % (11.5-14.5); WBC 11.83 X1000 (4.8-10.8)
[2018-11-28] MEDS: TOPROL XL PO SCH (08:11)
--- NOTE | 2018-11-28 09:49 | GENERAL SURGERY PROGRESS NOTE ---
DATE: 11/28/2018 SUBJECTIVE: Patient doing about the same. OBJECTIVE: Vital Signs: Temperature max 100.0. Temperature current 98.9. Remainder of vital signs appear stable. General: No acute distress. Cardiovascular: Regular rate and rhythm. Lungs: Grossly clear. Abdomen: Soft, appropriately tender. Incision is healing well. LABORATORY: Currently pending. CT scan independently reviewed and radiology report reviewed. Does not appear to be a hematoma. There appears to be more of a seroma. ASSESSMENT AND PLAN: An 84-year-old female status post open cholecystectomy. 1. Status post open cholecystectomy. At this time, CT scan did not seem to suggest an abscess. We will continue to monitor. She is on antibiotics. 2. We will get respiratory to see her for breathing treatments. 3. Clinically, I think she is doing better. 4. We will get Colace for bowel stimulation. 5. She needs to get up and move around with physical therapy. We will see if they can see her today. cc: MD Bay Aranda MD
[2018-11-28] MEDS: NEURONTIN PO SCH ×3 (10:05→22:35)
[2018-11-28] MEDS: GLUCOPHAGE PO SCH ×2 (10:05→18:14)
[2018-11-28] MEDS: NORVASC PO SCH (10:05)
[2018-11-28] MEDS: LASIX PO SCH (10:05)
[2018-11-28] MEDS: KLOR-CON PO SCH (10:05)
[2018-11-28] MEDS: COLCRYS PO SCH (10:08)
[2018-11-28] MEDS: DUONEB (A & A) INH PRN ×3 (11:00→23:15)
[2018-11-28] MEDS: PHENERGAN IM PRN ×2 (12:23→12:33)
[2018-11-28 15:36] LABS: AGAP 12; CHLORIDE 99 mmol/L (98-107); POTASSIUM 3.6 mmol/L (3.5-5.1); SODIUM 138 mmol/L (136-145); TCO2 27 mmol/L (25-35)
[2018-11-28 15:37] LABS: BUN 13 mg/dL (8-22); CALCIUM 8.8 mg/dL (8.8-10.2); COSMO 276; ESTIMATED GFR > 60; GLUCOSE 107 mg/dL (70-104)
[2018-11-28] MEDS: ZOFRAN IV PRN (16:00)
[2018-11-28] MEDS: TYLENOL PO PRN (16:40)
[2018-11-28] MEDS: ZOSYN 3.375 GM in NS 50 ML IV SCH ×2 (16:42→22:39)
--- NOTE | 2018-11-28 17:00 | Diag Imaging Result Doc PS360 ---
EXAM: CHEST-PORTABLE 11/28/2018 HISTORY: Fever, SOB TECHNIQUE: AP portable at 1647 COMMENT: There is cardiomegaly. There is apparent atelectasis in the right lower lobe. The atelectasis previously present on 11/27/2018 and the left base has resolved and there has been improvement on the right. IMPRESSION: Improved atelectasis. Electronically signed by Abdirizak Camacho 11/28/2018 4:57 PM
[2018-11-28] MEDS: ZYVOX 600 MG/D5W 600 MG/300 ML IVPB IV SCH (17:43)
[2018-11-28] MEDS: NS 1,000 ML IV SCH (17:43)
--- NOTE | 2018-11-28 18:04 | PROGRESS NOTE ---
DATE: 11/28/2018 SUBJECTIVE: This patient is complaining of chills and she is having fever at this moment. I will give her some Tylenol. She has been on cefoxitin since 11/23/2018 which I will stop and I will go ahead and put her on Zosyn and Zyvox. Her wound is covered. I do not see any secretion coming out. I will get a blood culture and urine culture as well. I will start her on normal saline to provide a little bit of fluids. OBJECTIVE: Vital Signs: Temperature 102.9 degrees, pulse 82, respiratory rate 18, blood pressure 155/51, oxygen saturation 93 on 2 L of nasal cannula. HEENT: Head normocephalic. No trauma. PERRLA. Neck: Supple. No JVD. No masses. Central trachea. Chest: Clear to auscultation. No wheezing. No rales. Some crepitus at the bases. Abdomen: Soft. The incision is covered with a dressing and a binder. As per surgery department, the incision is healing well. I do not see any secretions coming out or bleeding. Positive bowel sounds. Extremities: No edema. No clubbing. No cyanosis. Neurological: The patient is alert and oriented x3. No focal neurological deficits. LABORATORY: WBC 11.8, hemoglobin 8.2, hematocrit 26, and platelets 262,000. Sodium 138, potassium 3.6, chloride 99, bicarbonate 27, BUN 13, creatinine 1, glucose 107, calcium 8.8. ASSESSMENT AND PLAN: 1. Cholelithiasis hostile abdomen with dense adhesions status post laparoscopic converted to open cholecystectomy, surgery has been done on 11/22/2018, postoperative day #6. This patient is complaining of abdominal discomfort but as per the patient, the abdomen is better. She has been having chills and fever. I will get blood culture and urine culture as well and I will start this patient on Zosyn and Zyvox. I will stop the cefoxitin which was started back on 11/23/2018. I will continue with IV fluids as well. 2. Fever and chills, as above. 3. Type 2 diabetes. Continue with the same management. It looks like she is on metformin at home. Blood sugar has been stable. 4. Hypertension. Blood pressure has been stable as well. We will continue with the same management. 5. Gastroesophageal reflux disease. Continue with PPIs. 6. This patient has been getting lactate Ringer's and also she has been getting furosemide, which is her home medication. I will hold the furosemide today and I will re-evaluate tomorrow if I need to put her back on that medication. She has been tolerating p.o. but today she is not eating that much compared with yesterday, probably because she has generalized weakness and fever. Also, I will get a chest x-ray to rule out pneumonia. She is not complaining of shortness of breath or cough. cc: Bay Talbot MD
[2018-11-29] MEDS: NORCO-5 PO PRN ×3 (02:05→18:57)
[2018-11-29] MEDS: DUONEB (A & A) INH PRN ×3 (03:10→23:25)
[2018-11-29] MEDS: TYLENOL PO PRN ×2 (04:59→18:29)
[2018-11-29] MEDS: ZOSYN 3.375 GM in NS 50 ML IV SCH ×4 (05:00→21:43)
[2018-11-29] MEDS: HEPARIN SUBQ SCH ×3 (05:27→21:43)
[2018-11-29] MEDS ORDERED: NORVASC PO SCH (05:36)
[2018-11-29] MEDS: NS 1,000 ML IV SCH (05:57)
[2018-11-29] MEDS: PRILOSEC PO SCH (06:16)
[2018-11-29] MEDS: ZYVOX 600 MG/D5W 600 MG/300 ML IVPB IV SCH ×2 (06:16→18:32)
[2018-11-29] MEDS: HUMULIN R SUBQ SCH ×4 (07:05→21:42)
[2018-11-29 07:14] LABS: BASO# 0.02 X1000 (0.0-0.2); BASO% 0.2 % (0.0-0.8); EOS# 0.23 X1000 (0.0-0.7); EOS% 2.3 % (0.0-10.0); HEMATOCRIT 23.8 % (37.0-47.0); HEMOGLOBIN 7.6 g/dL (12.0-16.0); IMM GRAN# 0.11 X1000 (0.0-0.04); IMM GRAN% 1.1 % (0.0-0.5); LYMPH# 1.74 X1000 (1.2-3.4); LYMPH% 17.5 % (20.5-51.1); MCH 31.4 PG (27-31); MCHC 31.9 g/dL (33-37); MCV 98.3 FL (81-99); MONO# 1.16 X1000 (0.11-0.59); MONO% 11.7 % (1.7-9.3); MPV 10.8 FL (7.4-10.4); NEUT# 6.67 X1000 (1.4-6.5); NEUT% 67.2 % (42.2-75.2); PLT 282 X1000 (130-400); RBC 2.42 XMIL (4.2-5.4); RDW 13.9 % (11.5-14.5); WBC 9.93 X1000 (4.8-10.8)
[2018-11-29 07:33] LABS: ALB/GLOB RATIO 0.8; ALBUMIN 2.8 g/dL (3.5-5.0); CALCIUM 8.1 mg/dL (8.8-10.2); CREATININE 1.1 mg/dL (0.5-0.9); POTASSIUM 3.1 mmol/L (3.5-5.1); TOTAL BILIRUBIN 0.4 mg/dL (0.20-1.00); TOTAL PROTEIN 6.4 g/dL (6.3-8.3)
[2018-11-29] MEDS: GLUCOPHAGE PO SCH ×2 (08:55→16:39)
[2018-11-29] MEDS: KLOR-CON PO SCH (08:55)
[2018-11-29] MEDS: NORVASC PO SCH ×2 (08:56→09:00)
[2018-11-29] MEDS: COLCRYS PO SCH (08:57)
[2018-11-29] MEDS: NEURONTIN PO SCH ×3 (08:59→21:43)
[2018-11-29] MEDS ORDERED: KLOR-CON PO ONE (09:00)
[2018-11-29] MEDS: TOPROL XL PO SCH (09:01)
--- NOTE | 2018-11-29 11:31 | GENERAL SURGERY PROGRESS NOTE ---
DATE: 11/29/2018 SUBJECTIVE: Patient doing about the same. She did spike fevers again. Blood cultures have been sent. Urine cultures have been sent. Chest x-ray has been done. Hospitalists have added Zyvox and Zosyn. OBJECTIVE: Vital Signs: Current temperature 101 degrees, temperature max 102.9. Her vital signs have been stable. General: No acute distress, resting. Cardiovascular: Regular rate and rhythm. Lungs: Grossly clear. Abdomen: Binder in place, appropriately tender. ASSESSMENT/PLAN: 83-year-old female status post open cholecystectomy. 1. Open cholecystectomy. At this time she has continued to have fevers at night. CT scan did not show any discrete abscess. Chest x-ray does not show obvious pneumonia. She has been noted is put on Zyvox and Zosyn. We will continue to monitor her. We will follow up blood cultures. White blood cell count yesterday was 11 which is slightly over normal range. 2. She has had a deep venous thrombosis check and there was no deep venous thrombosis. 3. We will continue to mobilize her. 4. I appreciate the hospitalist's help. cc: MD Bay Aranda MD [facility]
[2018-11-29] MEDS ORDERED: LASIX PO ONE (14:29)
--- NOTE | 2018-11-29 18:24 | PROGRESS NOTE ---
DATE: 11/29/2018 SUBJECTIVE: This patient is feeling better today. No fever during the morning, but she had an episode of fever at 3 a.m. Blood culture and urine culture so far are negative. X-ray did not show any pneumonia. She is not complaining of any significant abdominal pain. I will continue with the same management. I will continue to monitor. Surgery Department on board. OBJECTIVE: Vital signs: Temperature 98.1 degrees, pulse 75, respiratory rate 18, blood pressure 125/42, oxygen saturation 95% on 2 L of nasal cannula.HEENT: Head normocephalic. No trauma. PERRLA. Neck supple. No JVD. No masses. Central trachea. Chest clear to auscultation. No wheezing. No rales. Some crepitus at the bases. Abdomen is soft. The incision is covered with a dressing/binder. She has actually 2 incisions, 1 of the lower abdomen and the other one of the right upper quadrant, and they look clean and they are dry. She has some stella, positive bowel sounds. Extremities: Edema 1 to 2+. No clubbing. No cyanosis. Neurologic: The patient is alert and oriented x3. No focal neurological deficit. LABORATORY: WBC 9.9, hemoglobin 7.6, hematocrit 23.8, platelets 282,000. Sodium 141, potassium 3.1, chloride 101, bicarbonate 28, BUN 12, creatinine 1.1, glucose 111, calcium 9.1. AST 17, ALT 6, alkaline phosphatase 88, albumin 2.8. ASSESSMENT AND PLAN: 1. Cholelithiasis, hostile abdomen with dense adhesions, status post laparoscopic converted to open cholecystectomy. Surgery Department evaluated this patient. The procedure has been done on 11/22/2018, postoperative day #7. This patient is still complaining of some abdominal discomfort, but it looks like she is getting better. She was having fever and chills yesterday and also today at around 3 a.m., but not during the day. She is feeling better. 2. Fever and chills, as above. Negative cultures so far. 3. Type 2 diabetes. Continue with same management. It looks like she has been on metformin at home. Blood sugar has been stable. 4. Hypertension. Blood pressure stable. 5. Gastroesophageal reflux disease. Continue with proton pump inhibitors. 6. This patient is tolerating p.o. She does have some lower extremity swelling. I will stop the fluids and I will put her on p.o. Lasix. We will monitor this patient closely. cc: Bay Talbot MD
[2018-11-29] MEDS: ZOFRAN IV PRN (21:42)
[2018-11-30] MEDS: HEPARIN SUBQ SCH ×3 (04:35→20:55)
[2018-11-30] MEDS: NORCO-5 PO PRN ×3 (04:35→20:55)
[2018-11-30] MEDS: ZOSYN 3.375 GM in NS 50 ML IV SCH ×5 (04:36→22:48)
[2018-11-30] MEDS: PRILOSEC PO SCH (06:09)
[2018-11-30] MEDS: PHENERGAN IM PRN (06:09)
[2018-11-30] MEDS: ZYVOX 600 MG/D5W 600 MG/300 ML IVPB IV SCH ×2 (06:09→18:43)
[2018-11-30 07:18] LABS: BASO# 0.02 X1000 (0.0-0.2); BASO% 0.2 % (0.0-0.8); EOS# 0.22 X1000 (0.0-0.7); EOS% 2.2 % (0.0-10.0); HEMATOCRIT 23.7 % (37.0-47.0); HEMOGLOBIN 7.4 g/dL (12.0-16.0); IMM GRAN# 0.12 X1000 (0.0-0.04); IMM GRAN% 1.2 % (0.0-0.5); LYMPH# 1.48 X1000 (1.2-3.4); LYMPH% 14.8 % (20.5-51.1); MCHC 31.2 g/dL (33-37); MCV 99.2 FL (81-99); MONO# 1.17 X1000 (0.11-0.59); MONO% 11.7 % (1.7-9.3); MPV 10.5 FL (7.4-10.4); NEUT# 7.02 X1000 (1.4-6.5); NEUT% 69.9 % (42.2-75.2); PLT 318 X1000 (130-400); RBC 2.39 XMIL (4.2-5.4); RDW 14.2 % (11.5-14.5); WBC 10.03 X1000 (4.8-10.8)
[2018-11-30 07:41] LABS: CALCIUM 8.2 mg/dL (8.8-10.2); CREATININE 1.1 mg/dL (0.5-0.9); POTASSIUM 3.3 mmol/L (3.5-5.1)
--- NOTE | 2018-11-30 07:52 | Diag Imaging Result Doc PS360 ---
CHEST-PORTABLE - 11/30/2018 INDICATION: dyspnea COMPARISON: 11/28/2018 FINDINGS: Stable cardiomegaly and pulmonary vascular congestion. No infiltrates or significant edema. No pneumothorax or large pleural effusion. IMPRESSION: Cardiomegaly and pulmonary vascular congestion. Electronically signed by Rj Barakat 11/30/2018 7:49 AM
[2018-11-30] MEDS: HUMULIN R SUBQ SCH ×4 (07:56→22:11)
[2018-11-30] MEDS: GLUCOPHAGE PO SCH ×2 (08:34→17:39)
[2018-11-30] MEDS: COLCRYS PO SCH (08:34)
[2018-11-30] MEDS: NEURONTIN PO SCH ×3 (08:34→20:55)
[2018-11-30] MEDS: KLOR-CON PO SCH (08:34)
[2018-11-30] MEDS: LASIX PO SCH (08:34)
[2018-11-30] MEDS: NORVASC PO SCH (08:36)
[2018-11-30] MEDS: TOPROL XL PO SCH (08:37)
[2018-11-30] MEDS ORDERED: KLOR-CON PO ONE (08:59)
[2018-11-30] MEDS ORDERED: LASIX IV ONE (11:40)
[2018-11-30] MEDS: DUONEB (A & A) INH PRN ×2 (12:37→19:20)
--- NOTE | 2018-11-30 14:50 | PROGRESS NOTE ---
DATE: 11/30/2018 SUBJECTIVE: When I evaluated this patient, she was sitting on the bed. She is complaining of some shortness of breath and abdominal pain. She is still having on and off fever. Today she had a low-grade temperature, and yesterday she had a fever at 102.7. I asked for blood culture and urine culture; the urine culture is showing at this moment gram-negative rods. I will continue with antibiotics. OBJECTIVE: Vital Signs: Temperature 97.9 degrees, pulse 67, respiratory rate 20, blood pressure 127/60, oxygen saturation 96% on 2 L of nasal cannula. HEENT: Head normocephalic, no trauma. PERRLA. Neck: Supple. No JVD. No masses. Central trachea. Chest: Clear to auscultation. Some rales at the bases. Some crepitus at the bases as well. Abdomen: Soft. The incision is covered with a dressing/binder. She actually has 2 incisions; 1 at the level of the lower abdomen and 1 in the right upper quadrant. The level at the level of the lower abdomen looks fine; the level of the right upper quadrant looks swollen, but I do not see any secretion coming out from there. The wounds have some stella. Positive bowel sounds. Extremities: There is 2+ to 3+ lower extremity edema. No clubbing. No cyanosis. Neurological examination: The patient is alert; she is oriented x3, but she does have generalized weakness, but no focal deficits. LABORATORY: WBC 10, hemoglobin 7.4, hematocrit 23.7, and platelets 318. Sodium 143, potassium 3.3, chloride 103, bicarbonate 26. BUN 9, creatinine 1.1, glucose 129, calcium 8.2. ASSESSMENT AND PLAN: 1. Cholelithiasis, hostile abdomen with dense adhesions, status post laparoscopic converted to open cholecystectomy. Surgery Department following this patient closely. The procedure has been done on 11/22/2018, postoperative day #8. The wound in the right upper quadrant looks a little bit swollen, but I do not see any secretion coming out from there. It is also painful to palpation. She has been having some fever and chills. We will continue with broad spectrum antibiotics. 2. We do have a positive urine culture that showed gram-negative rods, but I am not sure if this patient has been having symptoms. I have requested an evaluation by Infectious Disease Department. For now, we will continue with broad spectrum antibiotics. 3. Type 2 diabetes. Continue with same management. It looks like she has been on metformin at home. 4. Hypertension. Blood pressure is stable. 5. Gastroesophageal reflux disease. Continue with proton pump inhibitor. 6. This patient is tolerating oral. She does have lower extremity swelling and pulmonary vascular congestion. She has been getting oral Lasix, but I will add an extra dose of intravenous Lasix today to see how she does. cc: Bay Talbot MD
[2018-11-30] MEDS: VANCOCIN PO SCH ×2 (15:38→20:54)
--- NOTE | 2018-11-30 18:33 | INFECTIOUS DISEASE CONSULT REP ---
DATE: 11/30/2018 CONCLUSION: The patient is seen for fever following an open cholecystectomy. I think it is possible that the patient has Clostridium difficile diarrhea. RECOMMENDATIONS: I agree with starting the patient out on Zyvox and Zosyn. I have ordered a stool for Clostridium difficile antigen and toxin and I have started the patient on vancomycin 250 mg p.o. every 6 hours. DISCUSSION: The patient tells me that she came in the hospital. She had right upper quadrant pain and nausea and vomiting for approximately 3 to 4 weeks. She tells me that since she has been admitted, she has had diarrhea. Her laboratory studies thus far show a CBC with a white count of 10,030, hemoglobin 7.4, and platelet count 318,000. Creatinine is 1.1. GFR is 57. Liver function studies are normal. Urinalysis showed a trace of white blood cells, but no bacteria. Blood and urine cultures are negative. Chest x-ray shows cardiomegaly with pulmonary venous congestion. CT scan of the abdomen and pelvis shows surgical changes in the abdominal and pelvic wall. There also was a seroma versus hematoma in the gallbladder fossa. Also, there was bibasilar atelectasis. PAST MEDICAL HISTORY/REVIEW OF SYSTEMS: Eyes and ears: She does not have any problem seeing or hearing. Neck: She does not have any stiffness. Respiratory: She is not short of breath or coughing. Cardiac: No chest pain or palpitations. GI: See present illness. : No dysuria or flank pain. She had some urinary urgency. Bones, joints, muscles: No joint pain or muscle aches. Neurologic: No seizures. No loss of motor or sensory function recently. Integument: No rashes. B2B APPOINTMENT SETTER HISTORY: She is a 5, para 5, AB 0. She has had a hysterectomy. PREVIOUS HOSPITALIZATIONS AND OPERATIONS: She has had labor and deliveries, a hysterectomy, bilateral total knee arthroplasties and a left shoulder arthroplasty. MEDICAL DISEASES: Positive for osteoarthritis, obesity, diabetes mellitus, gastroesophageal reflux disease. INFECTIOUS DISEASE HISTORY: Positive for UTI. FAMILY HISTORY: Positive for myocardial infarction, hypertension, cancer, and diabetes mellitus. SOCIAL HISTORY: The patient lives in [place]. She is a . She lives alone. She does not have any pets. She does not smoke cigarettes, drink alcoholic beverages or abuse drugs. ALLERGIES: She is allergic to lisinopril. HOME MEDICATIONS: Include Norvasc, furosemide, gabapentin, hydrocodone, metformin, metoprolol, omeprazole and potassium. PHYSICAL EXAMINATION: Vital Signs: Temperature is 97.9, earlier it was 102.5, pulse is 67, respirations 20, blood pressure 127/60. The patient weighs 259 pounds. General: This is an obese, elderly female. She is in no acute distress. Head, eyes, ears, nose, and throat: She can hear my spoken words and see near objects. She does not have any white patches on her tongue. Neck: She does not have any pain when she moves her neck. Lungs: Clear to auscultation. Cardiovascular: Heart rate is regular. Abdomen: Soft. There is some tenderness in the right upper quadrant. There is a right upper quadrant incision which is intact and there also is a incision in the midline that also is intact. Neurologic: The patient is alert. She can move her extremities. There is no tremor. Her sensation is intact to touch. Her memory as regarding her medical history seemed to be intact. Integument: No rash noted. Thank you for the consult. cc: MD Bay Blankenship MD
--- NOTE | 2018-11-30 22:23 | GENERAL SURGERY PROGRESS NOTE ---
DATE: 11/30/2018 Ms Elizabeth is now 8 days after her open cholecystectomy. Continues to have fevers, her temp is 99.9 degrees this afternoon. Hemodynamic are okay. White count is 10,000. She is taking some stuff by mouth. Her bowels are moving satisfactorily. Her urine did culture out gram-negative sheyla. She is on Zosyn, which should cover that. No new recommendations currently. Will follow along. cc: MD Bay Francois MD
[2018-11-30] MEDS: TYLENOL PO PRN (22:48)
[2018-12-01] MEDS: NORCO-5 PO PRN ×4 (01:55→23:38)
[2018-12-01] MEDS: VANCOCIN PO SCH ×2 (01:55→10:00)
[2018-12-01] MEDS: ZOSYN 3.375 GM in NS 50 ML IV SCH ×4 (06:32→23:38)
[2018-12-01] MEDS: HEPARIN SUBQ SCH ×3 (06:32→23:38)
[2018-12-01] MEDS: PRILOSEC PO SCH (06:32)
[2018-12-01] MEDS: HUMULIN R SUBQ SCH ×4 (07:17→23:39)
[2018-12-01 07:30] LABS: BASO# 0.01 X1000 (0.0-0.2); BASO% 0.1 % (0.0-0.8); EOS# 0.48 X1000 (0.0-0.7); EOS% 3.8 % (0.0-10.0); HEMATOCRIT 25.5 % (37.0-47.0); HEMOGLOBIN 7.9 g/dL (12.0-16.0); IMM GRAN# 0.08 X1000 (0.0-0.04); IMM GRAN% 0.6 % (0.0-0.5); LYMPH# 2.39 X1000 (1.2-3.4); LYMPH% 19.1 % (20.5-51.1); MCH 30.7 PG (27-31); MCV 99.2 FL (81-99); MONO# 1.11 X1000 (0.11-0.59); MONO% 8.9 % (1.7-9.3); MPV 10.4 FL (7.4-10.4); NEUT# 8.46 X1000 (1.4-6.5); NEUT% 67.5 % (42.2-75.2); PLT 368 X1000 (130-400); RBC 2.57 XMIL (4.2-5.4); RDW 14.2 % (11.5-14.5); WBC 12.53 X1000 (4.8-10.8)
[2018-12-01 07:37] LABS: AGAP 12; ALB/GLOB RATIO 0.9; ALBUMIN 3.1 g/dL (3.5-5.0); ALKALINE PHOSPHATASE 65 U/L (32-104); BUN 9 mg/dL (8-22); CALCIUM 8.4 mg/dL (8.8-10.2); CHLORIDE 99 mmol/L (98-107); COSMO 277; ESTIMATED GFR > 60; GLUCOSE 109 mg/dL (70-104); GOT 31 U/L (10-30); GPT 10 U/L (10-36); POTASSIUM 3.4 mmol/L (3.5-5.1); SODIUM 139 mmol/L (136-145); TCO2 28 mmol/L (25-35); TOTAL BILIRUBIN 0.29 mg/dL (0.20-1.00); TOTAL PROTEIN 6.6 g/dL (6.3-8.3)
[2018-12-01] MEDS: ZYVOX 600 MG/D5W 600 MG/300 ML IVPB IV SCH ×2 (07:49→18:44)
[2018-12-01] MEDS ORDERED: KLOR-CON PO ONE (08:24)
--- NOTE | 2018-12-01 09:33 | GENERAL SURGERY PROGRESS NOTE ---
DATE: 12/01/2018 SUBJECTIVE: Ms. Elizabeth is afebrile this morning. Hemodynamics are good. She is eating. Her bowels are moving. DIAGNOSTICS/LABORATORIES: White count is 12,500 today. ASSESSMENT AND PLAN: We will see what her temperature does today. I no have no new recommendations. cc: MD Bay Francois MD
[2018-12-01] MEDS: NORVASC PO SCH ×2 (09:57→09:59)
[2018-12-01] MEDS: COLCRYS PO SCH (09:59)
[2018-12-01] MEDS: TOPROL XL PO SCH (10:00)
[2018-12-01] MEDS: LASIX PO SCH (10:00)
[2018-12-01] MEDS: NEURONTIN PO SCH ×3 (10:01→23:38)
[2018-12-01] MEDS: GLUCOPHAGE PO SCH ×2 (10:01→17:58)
[2018-12-01] MEDS: KLOR-CON PO SCH (10:02)
--- NOTE | 2018-12-01 13:29 | PROGRESS NOTE ---
DATE: 12/01/2018 SUBJECTIVE: Patient resting comfortably in bed, she is complaining of some pain at the level of the right upper quadrant, her wound looks clean. She has some blistering in that area as well, no secretion. Potassium level is low. I will replace it. OBJECTIVE: Vital Signs: Temperature 98.3 degrees, pulse 74, respiratory rate 18, blood pressure 136/41, oxygen saturation 100% on 2 L nasal cannula. HEENT: Head normocephalic, no trauma. PERRLA. Neck: Supple. No JVD. No masses. Central trachea. Chest: Clear to auscultation. Some rales at the bases. Some crepitus at the bases as well. Abdomen: Soft. The incision is not covered today, she has 2 incisions, 1 at the level of the lower abdomen midline and the other 1 is located at the level of the right upper quadrant, it has some blistering going on, is a little bit swollen as well and painful to palpation. I do not see any secretion coming out from this area, the wound has some stella, positive bowel sounds. Extremities: One to 2+ lower extremity edema. No clubbing, no cyanosis. Neuro: The patient is alert and oriented x3. She does have generalized weakness but no focal deficits. LABORATORY: WBC 12.5, hemoglobin 7.9, hematocrit 25.5, platelets 368,000. Sodium 139, potassium 3.4, chloride 99, bicarbonate 28, BUN 9, creatinine 1, glucose 109, calcium 8.4, albumin 3.1. ASSESSMENT AND PLAN: 1. Cholelithiasis, hostile abdomen with some dense adhesions, status post laparoscopic converted to open cholecystectomy. Surgery Department following this patient closely. The procedure has been done on 11/22/2018, postoperative day #9, her wound on the right upper quadrant looks a little bit swollen. I do not see any secretion coming out a little bit of blistering in the lower area and is painful to palpation, no fever or chills right now or during the morning. We will continue with antibiotics. 2. Positive urine culture that showed gram-negative rods. I am not sure if this patient is having symptoms but she is on broad-spectrum antibiotics anyway. 3. Type 2 diabetes. Continue with same management. 4. Hypertension. Blood pressure is stable. 5. Gastroesophageal reflux disease. Continue PPIs. 6. Physical deconditioning. Continue with same management. 7. This patient is tolerating p.o., will continue with her diet. 8. Hypokalemia. I will replace the potassium. cc: Bay Talbot MD
[2018-12-01] MEDS: ZOFRAN IV PRN (13:45)
[2018-12-01] MEDS: DUONEB (A & A) INH PRN ×3 (14:35→23:15)
--- NOTE | 2018-12-01 14:54 | INFECTIOUS DISEASE PROGRESS NO ---
DATE: 12/01/2018 PRESENT ILLNESS: The patient had fever following open cholecystectomy. It appears on the vitals that the patient's fever initially was high and fever has been gradually coming down and since 1 a.m. today she has not had any fever at all. Also the patient's urine culture grew Enterobacter, which could have been contributing to the patient's fever. MEDICATIONS: The patient is on combination of Zyvox and Zosyn. PHYSICAL EXAMINATION: Vital Signs: Temperature is 97.6 degrees, pulse 73, respirations 24, blood pressure 166/80. General: This is a somewhat ill-appearing, elderly female. She is in no acute distress. Head, eyes, ears, nose and throat: She can hear my spoken words and see near objects. She does not have any white coating of her tongue. There is no drainage coming from the nose or ears. Neck: No meningismus. Lungs: Clear to auscultation. Cardiovascular: Heart rate is regular. Abdomen: Soft. The incision in the right upper quadrant and the lower abdomen is intact. There is some induration in the patient's upper abdominal incision. Neurologic: The patient is alert. She can move her extremities. There is no tremor. LAB AND X-RAY: CBC today shows a white count of 12,530, hemoglobin 7.9, and platelet count 368,000. Patient's liver function studies are normal except for slight elevation of the AST at 31. As mentioned above, the urine is growing Enterobacter. There is no new radiographic study done today. The patient's stool for Clostridium difficile toxin and antigen was negative. ASSESSMENT AND PLAN: The patient had fever following open cholecystectomy. I think the fever is gradually abating. The patient did have diarrhea also but that is clearing up also and the stool for Clostridium difficile toxin and antigen was negative. I think it would be reasonable for now just to continue with the patient's current antibiotics. If she should have fever again or if the white blood cell count continues to go higher then I would suggest doing another CT scan of the abdomen and pelvis. COMORBIDITIES: The patient is elderly and she does have diabetes mellitus. She also is obese. cc: MD Bay Blankenship MD MTDD
[2018-12-02] MEDS: HEPARIN SUBQ SCH ×3 (06:23→21:08)
[2018-12-02] MEDS: ZOSYN 3.375 GM in NS 50 ML IV SCH ×3 (06:23→21:07)
[2018-12-02] MEDS: PRILOSEC PO SCH (06:24)
[2018-12-02] MEDS: HUMULIN R SUBQ SCH ×4 (06:29→21:08)
[2018-12-02 06:44] LABS: BASO# 0.01 X1000 (0.0-0.2); BASO% 0.1 % (0.0-0.8); EOS# 0.26 X1000 (0.0-0.7); HEMATOCRIT 24.3 % (37.0-47.0); HEMOGLOBIN 7.5 g/dL (12.0-16.0); IMM GRAN# 0.05 X1000 (0.0-0.04); IMM GRAN% 0.4 % (0.0-0.5); LYMPH# 2.47 X1000 (1.2-3.4); MCH 30.6 PG (27-31); MCHC 30.9 g/dL (33-37); MCV 99.2 FL (81-99); MONO# 1.06 X1000 (0.11-0.59); MONO% 8.1 % (1.7-9.3); NEUT# 9.18 X1000 (1.4-6.5); NEUT% 70.4 % (42.2-75.2); PLT 382 X1000 (130-400); RBC 2.45 XMIL (4.2-5.4); RDW 14.2 % (11.5-14.5); WBC 13.03 X1000 (4.8-10.8)
[2018-12-02 07:03] LABS: AGAP 5; BUN 7 mg/dL (8-22); CALCIUM 8.3 mg/dL (8.8-10.2); CHLORIDE 100 mmol/L (98-107); COSMO 273; ESTIMATED GFR > 60; GLUCOSE 87 mg/dL (70-104); POTASSIUM 3.2 mmol/L (3.5-5.1); SODIUM 138 mmol/L (136-145); TCO2 33 mmol/L (25-35)
[2018-12-02 07:10] LABS: MAGNESIUM 1.5 mg/dL (1.5-2.7); PHOSPHORUS 2.5 mg/dL (2.7-4.5)
[2018-12-02] MEDS: ZYVOX 600 MG/D5W 600 MG/300 ML IVPB IV SCH ×2 (07:17→17:08)
--- NOTE | 2018-12-02 07:40 | GENERAL SURGERY PROGRESS NOTE ---
DATE: 12/02/2018 SUBJECTIVE: Patient seems to be doing okay. Her temperature max was 99.9, T-current 98.1. OBJECTIVE: Vital Signs: Temperature current 98.1. Remainder of vital signs appear to be okay. General Examination: No acute distress. Cardiovascular: Regular rate and rhythm. Lungs: Grossly clear. Abdomen: Soft, appropriately tender. Incision okay. Isabela in place. Laboratory: Reviewed from yesterday. ASSESSMENT AND PLAN: An 83-year-old female status post open cholecystectomy. Postoperative state. At this time, temperature curve seems to be going down. She is on Zyvox and Zosyn. We will continue to monitor. It looks like she may have a urinary tract infection. We will continue supportive care, mobilization, and evaluation with physical therapy. cc: MD Bay Aranda MD
[2018-12-02] MEDS: NORCO-5 PO PRN ×2 (07:41→14:18)
[2018-12-02] MEDS: GLUCOPHAGE PO SCH ×2 (07:42→17:08)
[2018-12-02] MEDS: LASIX PO SCH ×2 (07:43→08:31)
[2018-12-02] MEDS: NORVASC PO SCH ×2 (07:43→08:30)
[2018-12-02] MEDS: COLCRYS PO SCH ×2 (07:45→08:30)
[2018-12-02] MEDS: NEURONTIN PO SCH ×4 (07:45→21:08)
[2018-12-02] MEDS: KLOR-CON PO SCH ×2 (07:45→08:31)
[2018-12-02] MEDS ORDERED: MAGNESIUM SULFATE 2 GM/S.W.I. 2 GM/50 ML IVPB IV ONE (08:04)
[2018-12-02] MEDS ORDERED: KLOR-CON PO ONE (08:05)
[2018-12-02] MEDS: TOPROL XL PO SCH (08:30)
[2018-12-02] MEDS ORDERED: LASIX IV ONE (08:42)
[2018-12-02] MEDS: DUONEB (A & A) INH PRN ×2 (08:59→15:58)
--- NOTE | 2018-12-02 09:09 | PROGRESS NOTE ---
DATE: 12/02/2018 SUBJECTIVE: The patient is sitting in bed. As per the patient, her appetite has slowed and she does have generalized weakness. Her wounds look clean. She has some blistering at the level of the lower part of the right upper quadrant wound. Potassium level is low and magnesium level is borderline low so I will replace both. OBJECTIVE: Vital Signs: Temperature 98.6 degrees, pulse 72, respiratory rate 18, blood pressure 140/50, oxygen saturation 96 on room air. HEENT: Head normocephalic. No trauma. PERRLA. Neck: Supple. No JVD. No masses. Central trachea. Chest: Clear to auscultation. Some rales at the bases. Some crepitus at the bases as well. Abdomen: Soft. The incision is not covered. She has two incisions, one at the level of the lower abdomen, midline, that looks clean and dry with some stella. The other one is located at the level of the right upper quadrant. It looks a little bit swollen, some blister blisters in the lower part of the incision, pain to palpation. I do not see any secretion coming out from that area. Has some stella. Positive bowel sounds. Extremities: There is 2+ lower extremity edema. No clubbing. No cyanosis. Neurological Examination: The patient is alert and oriented x3. She does have generalized weakness but no focal weakness. Laboratory: WBC 13, hemoglobin 7.5, hematocrit 24.3, platelets 382,000. Sodium 138, potassium 3.2, chloride 100, bicarbonate 33, BUN 7, creatinine 1, glucose 87, calcium 8.3, phosphorus 2.5, magnesium 1.5. ASSESSMENT AND PLAN: 1. Cholelithiasis, status post laparoscopic converted to open cholecystectomy, hostile abdomen with some dense adhesions. Surgery department following this patient closely. This procedure had been done on 11/22/2018. Today is postoperative day #10. Both of her wounds look fine. The right upper quadrant wound is a little bit swollen but better compared with the previous days. I do not see any secretion coming out from that area. 2. Positive urine culture that showed Enterobacter aerogenes, sensitive to Zosyn. We will continue with the same management. 3. Type 2 diabetes. Continue with same treatment. Stable. 4. Hypertension, stable. 5. Gastroesophageal reflux disease. Continue with proton pump inhibitors. 6. Physical deconditioning. Continue with the same management. 7. This patient is tolerating oral intake. We will continue with her diet. 8. Hypokalemia with borderline hypomagnesemia. I will replace both and I will monitor. 9. Mild fluid overload. I will give her an extra dose of Lasix. cc: Bay Talbot MD
--- NOTE | 2018-12-02 16:57 | INFECTIOUS DISEASE PROGRESS NO ---
DATE: 12/02/2018 PRESENT ILLNESS: The patient has resolving fever which started after she had an open cholecystectomy. MEDICATIONS: This is the 4th day of treatment with a combination of Zyvox and Zosyn. PHYSICAL EXAMINATION: Vital Signs: Temperature is 98.8 degrees, pulse 76, respirations 18, blood pressure 138/52. General: This is an obese, ill-appearing elderly female. She is in no acute distress. Head/eyes/ears/nose/throat: She can hear my spoken words and see near objects. She does not have any white patches in her mouth. Neck: No pain when she moves her neck. Lungs: Clear to auscultation. Cardiovascular: Heart rate is regular. Abdomen: Soft. The incision in the right upper quadrant and lower abdomen are not as indurated as they were and the bulla has been drained. Neurologic: Patient is alert. She was able to walk in her room today. LAB AND X-RAY STUDIES: There is a is no new radiographic study for today. The patient's CBC shows a white count of 13,030. Hemoglobin 7.5, and platelet count 382,000. Creatinine is 1.0. GFR is greater than 60. ASSESSMENT AND PLAN: The patient has fever following an open cholecystectomy. Her temperature has become normal, but her white count is increasing a little bit. My plan would be to continue with Zyvox and Zosyn. COMORBIDITIES: The patient is elderly. She has diabetes mellitus and she is obese. cc: MD Bay Blankenship MD
[2018-12-02] MEDS: ZOFRAN IV PRN (17:08)
[2018-12-02] MEDS: TYLENOL PO PRN (21:08)
[2018-12-03] MEDS: ZOSYN 3.375 GM in NS 50 ML IV SCH ×4 (02:33→20:43)
[2018-12-03] MEDS: ZYVOX 600 MG/D5W 600 MG/300 ML IVPB IV SCH ×2 (06:48→18:20)
[2018-12-03] MEDS: HEPARIN SUBQ SCH ×3 (06:48→19:58)
[2018-12-03] MEDS: PRILOSEC PO SCH (06:49)
[2018-12-03] MEDS: NORCO-5 PO PRN ×2 (06:49→16:32)
[2018-12-03 06:53] LABS: BASO# 0.02 X1000 (0.0-0.2); BASO% 0.1 % (0.0-0.8); EOS# 0.23 X1000 (0.0-0.7); EOS% 1.6 % (0.0-10.0); HEMATOCRIT 25.6 % (37.0-47.0); IMM GRAN# 0.06 X1000 (0.0-0.04); IMM GRAN% 0.4 % (0.0-0.5); LYMPH% 16.2 % (20.5-51.1); MCHC 31.3 g/dL (33-37); MCV 99.2 FL (81-99); MONO% 7.8 % (1.7-9.3); MPV 9.9 FL (7.4-10.4); NEUT# 10.46 X1000 (1.4-6.5); NEUT% 73.9 % (42.2-75.2); PLT 414 X1000 (130-400); RBC 2.58 XMIL (4.2-5.4); RDW 14.1 % (11.5-14.5); WBC 14.17 X1000 (4.8-10.8)
[2018-12-03] MEDS: HUMULIN R SUBQ SCH ×4 (06:54→17:28)
[2018-12-03 06:56] LABS: AGAP 10; BUN 7 mg/dL (8-22); CALCIUM 8.3 mg/dL (8.8-10.2); CHLORIDE 100 mmol/L (98-107); COSMO 273; ESTIMATED GFR > 60; GLUCOSE 113 mg/dL (70-104); MAGNESIUM 1.8 mg/dL (1.5-2.7); PHOSPHORUS 2.3 mg/dL (2.7-4.5); POTASSIUM 3.7 mmol/L (3.5-5.1); SODIUM 137 mmol/L (136-145); TCO2 27 mmol/L (25-35)
[2018-12-03] MEDS: DUONEB (A & A) INH PRN ×4 (07:44→23:22)
--- NOTE | 2018-12-03 07:45 | GENERAL SURGERY PROGRESS NOTE ---
DATE: 12/03/2018 SUBJECTIVE: Patient seems to be doing about the same. OBJECTIVE: Vital Signs: Patient is currently afebrile. Vital signs stable. General: No acute distress. Resting comfortably. Cardiovascular: Regular rate and rhythm. Lungs: Grossly clear. Abdomen: Soft, appropriately tender. Incision okay. LABORATORY: None this morning as of yet. Reviewed from yesterday white blood cell count slightly up at 13, hematocrit 24. Microbiology shows Enterobacter aerogenes which is sensitive to the Zosyn in her urine. Otherwise everything was normal. ASSESSMENT AND PLAN: An 83-year-old female, currently postoperative day #11 from open cholecystectomy. Postop state at this time, continue supportive care. Continue antibiotics. At this point, we need to be considering transitioning over to a rehab facility. We will continue supportive care. cc: Heladio Acosta MD
--- NOTE | 2018-12-03 08:24 | INFECTIOUS DISEASE PROGRESS NO ---
DATE: 12/03/2018 PRESENT ILLNESS: The patient has fever and leukocytosis after an open cholecystectomy. MEDICATIONS: This is the fifth day of treatment with Zyvox and Zosyn. PHYSICAL EXAMINATION: Vital Signs: Temperature maximum was 101, pulse 71, respirations 18, blood pressure 136/47. General: This is an obese, ill-appearing, elderly female. She is in no acute distress. HEENT: She can hear my spoken words and see near objects. She does not have any white coating on her tongue. Neck: She does not have any pain in her neck when she moves her head. Lungs: Clear to auscultation. Cardiovascular: Heart rate is regular. Abdomen: Soft, except at the incision site in the right upper quadrant, where there is induration and erythema and a little bit of sanguinous drainage. The other incision site in the middle of the abdomen is intact. There is no erythema and no drainage coming from the incision. Neurologic: The patient is awake. She can move her extremities. She is able to sit in a chair. There is no tremor. IMAGING AND LABORATORY DATA: CBC shows a white count of 14,170, hemoglobin 8, platelet count 414,000. Creatinine is 1. GFR is greater than 60. There is no radiographic study from yesterday. ASSESSMENT AND PLAN: The patient has fever and leukocytosis following cholecystectomy. I am going to continue her current antibiotics. I discussed the patient's case with Dr. Acosta, and our plan is to obtain a CT scan of the chest, abdomen, and pelvis. COMORBIDITIES: She is elderly, she is a diabetic, and she also is obese. cc: Marcelino Roach MD
[2018-12-03] MEDS: TOPROL XL PO SCH (11:14)
[2018-12-03] MEDS: NEURONTIN PO SCH ×3 (11:14→19:58)
[2018-12-03] MEDS: LASIX PO SCH (11:14)
[2018-12-03] MEDS: COLCRYS PO SCH (11:14)
--- NOTE | 2018-12-03 11:14 | Diag Imaging Result Doc PS360 ---
CT THORAX/ABD/PELVIS W/CON - 12/03/2018 INDICATION: abdominal infection, pneumonia COMPARISON: 11/27/2018 FINDINGS: CHEST: There is mild cardiomegaly. No adenopathy. There is scattered linear atelectasis throughout the lungs. No suspicious infiltrates. No pneumothorax or pleural effusion. Bony structures are intact. There is a left shoulder prosthesis. Abdomen pelvis: There has been increase in size in the extremely superficial, located fluid collection in the anterior right body wall just below the sutures. This now measures 5.1 x 16.2 cm. The second smaller inferior pelvic subcutaneous tissue loculation remains stable in size. This measures about 2 x 4 cm. Uterus is absent. Urinary bladder and rectum are normal. No bowel obstruction or inflammation. There are moderate degenerative changes of the spine. No acute or suspicious bony lesion. Stable cholecystectomy changes. Stable minimal fluid type density in the cholecystectomy bed. No bowel obstruction or inflammation. Several stable bilateral renal cysts. IMPRESSION: Significant increase in size of the superficial subcutaneous fluid collection in the anterior right body wall extending to the surgical incision here. Otherwise no change from prior. This exam was performed using automated exposure control, adjustment of mA or kV according to patient size, and/or use of iterative reconstruction technique Electronically signed by Rj Barakat 12/03/2018 11:12 AM
[2018-12-03] MEDS: KLOR-CON PO SCH (11:15)
[2018-12-03] MEDS: NORVASC PO SCH (11:20)
[2018-12-03] MEDS: GLUCOPHAGE PO SCH ×2 (11:20→17:28)
--- NOTE | 2018-12-03 15:05 | PROGRESS NOTE ---
DATE: 12/03/2018 INTERVAL HISTORY: Patient still with low-grade fever overnight. Abdominal pain remains mild, well controlled. No new complaints. No other acute events overnight. REVIEW OF SYSTEMS: Twelve point review of systems negative except as per interval history. LABS: White blood count 14.1, hematocrit 25.6, platelets 414,000. Sodium 137, potassium 3.7, BUN 7, creatinine 1.0, glucose 113, phosphorus 2.3. VITALS: T-max 100.3 degrees, pulse 71, respirations 16, blood pressure 132/68, O2 saturation 96% on 2 L by nasal cannula. PHYSICAL EXAMINATION: General: No acute distress. Vitals: As above. HEENT: Normocephalic, atraumatic. Moist mucous membranes. No cervical adenopathy. Cardiovascular: Regular rate and rhythm. No murmurs noted. Pulmonary: Clear to auscultation bilaterally. No wheezing, rales, or rhonchi. Abdomen: Moderately soft. Some fullness and mild tenderness of right upper quadrant. Bowel sounds decreased but present. Extremities: Peripheral pulses intact. No clubbing or cyanosis. Neurologic: Cranial nerves grossly intact. No focal deficits identified. Psychiatric: Normal mood and affect. Awake, alert, and oriented x3. Skin: No new rashes or lesions identified. ASSESSMENT AND PLAN: 1. Fever and leukocytosis. Patient is status post laparoscopic cholecystectomy which had to be converted to open, approximately 10 days ago. Persistent fevers over the last few days, although appears to be trending down somewhat. CT of the chest, abdomen, and pelvis showing fluid collection at the right upper quadrant surgical site but no other obvious source of an infection. Infections disease following. Patient on day 6 of Zyvox and Zosyn currently. Fevers do appear to be trending down as above but leukocytosis worsening. Uncertain if this fluid collection seen on CT represents seroma/other benign fluid collection versus abscess. We will await further infectious disease and surgery recommendations. Continue antibiotics for now. Continue to monitor. 2. Urinary tract infection. Urine culture showing Enterobacter aerogenes, resistant only to cefazolin, intermediate to Macrobid. She will likely go home on Omnicef once other issues resolved if other issues do not necessitate different antibiotics. 3. Diabetes, reasonable control. Monitor. 4. Hypertension, stable. Monitor. 5. Continue proton pump inhibitor. 6. Physical deconditioning and morbid obesity. Continue therapy. Recommended diet and exercise when possible. 7. Hypokalemia, improved with repletion. Monitor.
[2018-12-03] MEDS: TYLENOL PO PRN (19:58)
[2018-12-04] MEDS: HEPARIN SUBQ SCH ×5 (00:44→21:43)
[2018-12-04] MEDS: NEURONTIN PO SCH ×4 (00:45→21:43)
[2018-12-04] MEDS: HUMULIN R SUBQ SCH ×5 (00:45→21:33)
[2018-12-04] MEDS: ZOSYN 3.375 GM in NS 50 ML IV SCH ×5 (00:45→21:43)
[2018-12-04] MEDS: NORCO-5 PO PRN ×4 (04:47→18:26)
[2018-12-04] MEDS: ZYVOX 600 MG/D5W 600 MG/300 ML IVPB IV SCH ×2 (06:05→17:40)
[2018-12-04] MEDS: PRILOSEC PO SCH (06:06)
[2018-12-04] MEDS: GLUCOPHAGE PO SCH ×3 (06:06→16:03)
--- NOTE | 2018-12-04 06:27 | OPERATIVE NOTE ---
PROCEDURE DATE: 12/04/2018 SUBJECTIVE: The patient is doing about the same. She did spike a fever to 101.4. She had a CT scan that showed just a fluid collection in her incision. OBJECTIVE: Vital Signs: T-max 101.4 degrees. Remainder of vital signs have been stable. General: No acute distress. Cardiovascular: Regular rate and rhythm. Lungs: Grossly clear. Abdomen: Soft. Skin: Incision okay. We removed a couple of stella, probed the wound, drained old hematoma, did get cultures. ASSESSMENT AND PLAN: An 83-year-old female currently postoperative day #12 from open cholecystectomy. Postop state. At this time, did drain what looked like an old hematoma from her subcostal incision. Did send cultures. We will do wet-to-dry dressing changes on it. cc: Heladio Acosta MD
[2018-12-04 09:22] LABS: EOS# 0.22 X1000 (0.0-0.7); HEMOGLOBIN 8.5 g/dL (12.0-16.0); IMM GRAN# 0.06 X1000 (0.0-0.04); IMM GRAN% 0.5 % (0.0-0.5); LYMPH# 1.87 X1000 (1.2-3.4); LYMPH% 16.9 % (20.5-51.1); MCH 30.9 PG (27-31); MCHC 31.5 g/dL (33-37); MCV 98.2 FL (81-99); MONO# 0.63 X1000 (0.11-0.59); MONO% 5.7 % (1.7-9.3); MPV 9.3 FL (7.4-10.4); NEUT# 8.26 X1000 (1.4-6.5); NEUT% 74.9 % (42.2-75.2); PLT 421 X1000 (130-400); RBC 2.75 XMIL (4.2-5.4); WBC 11.04 X1000 (4.8-10.8)
[2018-12-04 09:31] LABS: AGAP 14; BUN 7 mg/dL (8-22); CALCIUM 8.5 mg/dL (8.8-10.2); CHLORIDE 99 mmol/L (98-107); COSMO 275; ESTIMATED GFR > 60; GLUCOSE 150 mg/dL (70-104); POTASSIUM 3.4 mmol/L (3.5-5.1); SODIUM 137 mmol/L (136-145); TCO2 24 mmol/L (25-35)
[2018-12-04] MEDS: LASIX PO SCH ×2 (09:54→12:52)
[2018-12-04] MEDS: KLOR-CON PO SCH (09:54)
[2018-12-04] MEDS: NORVASC PO SCH ×2 (09:54→12:53)
[2018-12-04] MEDS: COLCRYS PO SCH (09:54)
[2018-12-04] MEDS: TOPROL XL PO SCH ×2 (09:54→12:52)
--- NOTE | 2018-12-04 14:29 | PROGRESS NOTE ---
DATE: 12/04/2018 INTERVAL HISTORY: It initially looked like the patient's fevers were trending down but then had significant fever overnight up to 101.4. Had drainage of right upper quadrant subcutaneous hematoma early this morning. No new complaints. No other acute events overnight. REVIEW OF SYSTEMS: Twelve point review of systems negative except as per interval history. LABS: WBC 11.0, hemoglobin 8.5, hematocrit 27.0, platelets 421,000. Sodium 137, potassium 3.4, BUN 7, creatinine 1.0, bicarbonate 24, glucose 150. VITALS: T-max 101.4 degrees, pulse 66, respirations 16, blood pressure 128/51, O2 saturation 100% on 2 L by nasal cannula. PHYSICAL EXAMINATION: General: No acute distress. Vitals: As above. HEENT: Normocephalic, atraumatic. Moist mucous membranes. No cervical adenopathy. Cardiovascular: Regular rate and rhythm. No murmurs noted. Pulmonary: Clear to auscultation. No wheezing, rales, or rhonchi. Abdomen: Soft. Right upper quadrant with less induration. No current drainage. Bowel sounds decreased but present. Extremities: Peripheral pulses intact. No clubbing or cyanosis. Neurologic: Cranial nerves grossly intact. No focal deficits seen. Psychiatric: Normal mood and affect. Awake, alert, oriented x3. Skin: No new rashes or lesions identified. ASSESSMENT AND PLAN: 1. Fever and leukocytosis. The patient is status post laparoscopic cholecystectomy which had to be converted to an open procedure. This was approximately 11 days ago. Persistent fevers of the last few days. Repeat CT showing only fluid collection in the subcutaneous underneath right upper quadrant incision. This was opened up early this morning by surgery and a large hematoma was drained. This may have been the source of the fever. Currently on day 7 of Zyvox and Zosyn as per infectious disease. Hopefully, now that this area has drained, her fevers will resolve. Continue to monitor. 2. Urinary tract infection. Urine culture showing Enterobacter aerogenes, resistant only to cefazolin and intermediate to Macrobid. Could go home on Omnicef for this but antibiotics will likely be dictated by her other issues. 3. Diabetes, reasonable control. Monitor. 4. Hypertension, stable. Monitor. 5. Gastroesophageal reflux disease. Continue proton pump inhibitor. 6. Physical deconditioning and morbid obesity. Continue physical therapy. Recommended diet and exercise when possible. 7. Hypokalemia, improved but still slightly low. We will further replete and monitor.
--- NOTE | 2018-12-04 14:52 | INFECTIOUS DISEASE PROGRESS NO ---
DATE: 12/04/2018 PRESENT ILLNESS: The patient had fever and leukocytosis after an open cholecystectomy. On CAT scan, the patient had a marked increase in the subcutaneous fluid collection involving the patient's incision. MEDICATIONS: The patient is receiving Zyvox and Zosyn. PHYSICAL EXAMINATION: Earlier the temperature was 102 degrees; now after the wound has been drained by Dr. Acosta, the temperature is down to 98.4, pulse 62, respirations 14, blood pressure 133/42.Head, Eyes, Ears, Nose, and Throat: She can hear my spoken words and see near objects. There is no white coating on her tongue. Neck: She does not have any pain when she moves her head. Lungs: Clear to auscultation. Cardiovascular: Heart rate is regular. Abdomen: Soft. The wound is less indurated and swollen since Dr. Acosta has removed the hematoma. Neurologic: The patient is awake. She can move her extremities. There is no tremor. DIAGNOSTIC STUDIES: CT scan show that there was a marked increase in the subcutaneous fluid collection in the patient's incision. CBC shows a white count is down to 11,040, hemoglobin is 8.5, and platelet count is 421,000. Creatinine is 1, GFR is greater than 60. ASSESSMENT AND PLAN: The patient has a hematoma in the patient's incision. This has been drained and the temperature has come down and the patient feels better. My plan is to continue the current antibiotics pending the results of culture. The culture will be of the hematoma that was evacuated. PATIENT'S COMORBIDITIES: 1. She is elderly. 2. She is obese. 3. The patient also is a diabetic. cc: Marcelino Roach MD
[2018-12-04] MEDS: DUONEB (A & A) INH PRN ×3 (17:46→23:25)
[2018-12-05] MEDS: ZOSYN 3.375 GM in NS 50 ML IV SCH ×4 (03:38→22:39)
[2018-12-05] MEDS: NORCO-5 PO PRN ×4 (04:19→17:14)
[2018-12-05] MEDS: HEPARIN SUBQ SCH ×2 (06:01→13:11)
[2018-12-05] MEDS: PRILOSEC PO SCH (06:01)
[2018-12-05] MEDS: ZYVOX 600 MG/D5W 600 MG/300 ML IVPB IV SCH ×2 (06:02→22:30)
[2018-12-05 07:28] LABS: EOS# 0.29 X1000 (0.0-0.7); EOS% 3.6 % (0.0-10.0); HEMATOCRIT 23.5 % (37.0-47.0); HEMOGLOBIN 7.2 g/dL (12.0-16.0); IMM GRAN# 0.04 X1000 (0.0-0.04); IMM GRAN% 0.5 % (0.0-0.5); LYMPH# 1.59 X1000 (1.2-3.4); LYMPH% 19.8 % (20.5-51.1); MCH 30.1 PG (27-31); MCHC 30.6 g/dL (33-37); MCV 98.3 FL (81-99); MONO# 0.68 X1000 (0.11-0.59); MONO% 8.5 % (1.7-9.3); MPV 9.7 FL (7.4-10.4); NEUT# 5.42 X1000 (1.4-6.5); NEUT% 67.6 % (42.2-75.2); PLT 415 X1000 (130-400); RBC 2.39 XMIL (4.2-5.4); RDW 13.8 % (11.5-14.5); WBC 8.02 X1000 (4.8-10.8)
[2018-12-05 07:37] LABS: AGAP 14; BUN 7 mg/dL (8-22); CALCIUM 8.3 mg/dL (8.8-10.2); CHLORIDE 101 mmol/L (98-107); COSMO 277; CREATININE 0.9 mg/dL (0.5-0.9); ESTIMATED GFR > 60; GLUCOSE 120 mg/dL (70-104); POTASSIUM 3.2 mmol/L (3.5-5.1); SODIUM 139 mmol/L (136-145); TCO2 24 mmol/L (25-35)
[2018-12-05] MEDS: HUMULIN R SUBQ SCH ×4 (07:51→21:30)
--- NOTE | 2018-12-05 08:44 | GENERAL SURGERY PROGRESS NOTE ---
DATE: 12/05/2018 SUBJECTIVE: Patient is doing okay. OBJECTIVE: Vital Signs: The patient is currently afebrile. She has had no fevers over the last 24 hours. Vital signs have been stable. General Examination: No acute distress. Cardiovascular: Regular rate and rhythm. Lungs: Grossly clear. Abdomen: Soft, with dressing intact to wound. Some mild drainage. ASSESSMENT AND PLAN: An 83-year-old female, currently postoperative day #13 from open cholecystectomy. Postoperative state. At this time, she seems to be doing okay. We will continue local wound care. She has not had a fever in the last 24 hours. We will continue supportive care. cc: Heladio Acosta MD
[2018-12-05] MEDS: NEURONTIN PO SCH ×3 (08:52→22:39)
[2018-12-05] MEDS: KLOR-CON PO SCH (08:53)
[2018-12-05] MEDS: GLUCOPHAGE PO SCH ×2 (08:53→18:42)
[2018-12-05] MEDS: LASIX PO SCH (08:53)
[2018-12-05] MEDS: COLCRYS PO SCH (08:53)
[2018-12-05] MEDS: TOPROL XL PO SCH (11:51)
[2018-12-05] MEDS: NORVASC PO SCH (11:51)
[2018-12-05] MEDS: POTASSIUM CHLORIDE 20 MEQ/SWI 20 MEQ/100 ML IVPB IV SCH ×2 (13:11→16:30)
--- NOTE | 2018-12-05 14:57 | PROGRESS NOTE ---
DATE: 12/05/2018 INTERVAL HISTORY: Patient with no further fevers since drainage of right upper quadrant hematoma yesterday. She reports feeling well. No acute events overnight. No new complaints. REVIEW OF SYSTEMS: A 12-point review of systems is negative, except as per Interval History. LABORATORY DATA: WBC 8.0, hemoglobin 7.2, hematocrit 23.5, platelets 415,000. Sodium 139, potassium 3.2, BUN 7, creatinine 0.9, glucose 133. OBJECTIVE: Vital Signs: T-max 98.8 degrees, pulse 65, respirations 18, blood pressure 141/54, O2 saturation 97% on room air. General: No acute distress, morbidly obese. HEENT: Normocephalic, atraumatic. Moist mucous membranes. No cervical adenopathy. Cardiovascular: Regular rate and rhythm. No murmurs, rubs, or gallops. Pulmonary: Clear to auscultation. No wheezing, rales, or rhonchi. Abdomen: Largely soft. Area around the right upper quadrant incision is still with some slight induration, but much improved from previous. Bowel sounds present. Extremities: Peripheral pulses intact. No clubbing or cyanosis. Neurologic: Cranial nerves grossly intact. No focal deficits identified. Psychiatric: Normal mood and affect. Awake, alert, oriented x3. Skin: No new rashes or lesions identified. ASSESSMENT AND PLAN: 1. Fever and leukocytosis. The patient is status post laparoscopic cholecystectomy, which had been converted to open procedure almost 2 weeks ago. Had persistent fevers. CT showed right upper quadrant subcutaneous fluid collection, which was drained revealing large hematoma. No further fever since drainage, suggesting this was likely the source of infection and her fever. Currently on Zyvox and Zosyn as per Infectious Disease. Continue to monitor. If fevers remain resolved, then may be nearing the end of her need for hospitalization. 2. Urinary tract infection. Urine culture showing Enterobacter aerogenes, sufficiently treated with Zosyn. Now resolved. 3. Diabetes, reasonable control. Monitor. 4. Hypertension, stable. Monitor. 5. Gastroesophageal reflux disease. Continue proton pump inhibitor. 6. Physical deconditioning and morbid obesity. Continue physical therapy. Diet and exercise have been discussed. 7. Hypokalemia. Still low despite repletion. Will give the patient further potassium, and monitor.
--- NOTE | 2018-12-05 18:16 | INFECTIOUS DISEASE PROGRESS NO ---
DATE: 12/05/2018 PRESENT ILLNESS: The patient is status post opening a large hematoma in the patient's right abdominal incision where she had a cholecystectomy performed. MEDICATIONS: The patient is on a combination of Zyvox and Zosyn now for 7 days. PHYSICAL EXAMINATION: Vital Signs: Temperature is 97.9, pulse 65, respirations 18, blood pressure 141/54. General: This is an obese, elderly female. She is in no acute distress. Head, Eyes, Ears, Nose and Throat: She can hear my spoken words and see near objects. She does not have any white patches in her mouth. Neck: When she moves her head she does not have any neck pain. Lungs: Clear to auscultation. Cardiovascular: Heart rate is regular. Abdomen: Soft and nontender. The patient's right upper quadrant incision has been partially left open after the drainage procedure carried out by Dr. Acosta. I went ahead and partially removed some the packing and stuck the swab deep into the wound to obtain a culture. The fluid appeared to be serosanguineous in nature. It did not have an odor. LAB AND X-RAY: CBC shows a white count of 8020, hemoglobin 7.2, and platelet count 415,000. Creatinine is 0.9. GFR is greater than 60. Unfortunately, a culture taken at surgery did not make it to the microbiology lab, so I went ahead and obtained a deep culture from the patient's right upper quadrant incision. ASSESSMENT AND PLAN: For now, I am going to continue leaving the patient on Zyvox and Zosyn pending the culture results of the patient's abdominal wound which I obtained today. COMORBIDITIES: Elderly, obesity, and diabetes mellitus. cc: Marcelino Roach MD
[2018-12-05] MEDS: DUONEB (A & A) INH PRN (19:20)
[2018-12-06] MEDS: ZOSYN 3.375 GM in NS 50 ML IV SCH ×4 (02:00→22:00)
[2018-12-06] MEDS: NORCO-5 PO PRN ×4 (03:56→21:48)
[2018-12-06] MEDS: HEPARIN SUBQ SCH ×4 (04:59→20:01)
[2018-12-06] MEDS: DUONEB (A & A) INH PRN ×2 (07:40→20:29)
--- NOTE | 2018-12-06 07:40 | GENERAL SURGERY PROGRESS NOTE ---
DATE: 12/06/2018 The patient is doing okay. She is feeling better. It does not look like she has had a fever in the last 24 hours. Culture from the wound of the old hematoma is still pending. Removed her stella. Her incision for the most part looks okay. It is still draining a little bit of serosanguineous fluid. No active purulence. From a surgical point of view, I think we are getting close to discharge. Would defer to Infectious Disease on antibiotics for home. It sounds like the family would rather go home than go to rehab. I think she is significantly deconditioned and would benefit from physical therapy, but we will have case management discuss further with the family. cc: Heladio Acosta MD
[2018-12-06] MEDS: HUMULIN R SUBQ SCH ×4 (08:05→23:33)
[2018-12-06 08:25] LABS: BASO# 0.01 X1000 (0.0-0.2); BASO% 0.2 % (0.0-0.8); EOS# 0.26 X1000 (0.0-0.7); EOS% 3.9 % (0.0-10.0); HEMATOCRIT 25.4 % (37.0-47.0); IMM GRAN# 0.02 X1000 (0.0-0.04); IMM GRAN% 0.3 % (0.0-0.5); LYMPH# 1.73 X1000 (1.2-3.4); LYMPH% 26.2 % (20.5-51.1); MCH 32.5 PG (27-31); MCHC 31.5 g/dL (33-37); MCV 103.3 FL (81-99); MONO# 0.68 X1000 (0.11-0.59); MONO% 10.3 % (1.7-9.3); MPV 9.7 FL (7.4-10.4); NEUT% 59.1 % (42.2-75.2); PLT 436 X1000 (130-400); RBC 2.46 XMIL (4.2-5.4); RDW 14.5 % (11.5-14.5)
[2018-12-06 08:42] LABS: AGAP 14; BUN 6 mg/dL (8-22); CALCIUM 8.4 mg/dL (8.8-10.2); CHLORIDE 103 mmol/L (98-107); COSMO 274; CREATININE 0.9 mg/dL (0.5-0.9); ESTIMATED GFR > 60; GLUCOSE 103 mg/dL (70-104); POTASSIUM 4.2 mmol/L (3.5-5.1); SODIUM 138 mmol/L (136-145); TCO2 21 mmol/L (25-35)
[2018-12-06] MEDS: PRILOSEC PO SCH (09:47)
[2018-12-06] MEDS: COLCRYS PO SCH (09:47)
[2018-12-06] MEDS: GLUCOPHAGE PO SCH ×2 (09:47→17:27)
[2018-12-06] MEDS: NORVASC PO SCH (09:47)
[2018-12-06] MEDS: LASIX PO SCH (09:48)
[2018-12-06] MEDS: NEURONTIN PO SCH ×3 (09:49→20:01)
[2018-12-06] MEDS: KLOR-CON PO SCH (09:49)
[2018-12-06] MEDS: TOPROL XL PO SCH (09:49)
[2018-12-06] MEDS: ZYVOX PO SCH ×2 (10:27→20:01)
[2018-12-06] MEDS: ZOFRAN IV PRN (12:00)
--- NOTE | 2018-12-06 13:31 | INFECTIOUS DISEASE PROGRESS NO ---
DATE: 12/06/2018 PRESENT ILLNESS: Ms. Elizabeth is status post open cholecystectomy with a subsequent hematoma, fever, and leukocytosis. MEDICATIONS: She is receiving Zyvox 600 mg IV every 12 hours and Zosyn 3.375 g IV every 6 hours. PHYSICAL EXAMINATION: Vital Signs: Temperature is 97.7 degrees, pulse rate 73, respiratory rate 16, blood pressure 163/69, O2 saturation is 97% on room air. General: This is a morbidly obese chronically ill-appearing elderly female. She is sitting up in the bed, currently in no acute distress. HEENT: Atraumatic, normocephalic. Oral mucous membranes are pink and moist. Conjunctivae are pale. Neck: Supple. Trachea is midline. Respiratory: Lung sounds are clear to auscultation bilaterally. Cardiovascular: Heart rate is regular. Systolic murmur is noted. Abdomen: Soft, obese, and tender with a dressing in place to the right side, which is partially saturated. Drainage appears to be serous. Dressing not removed at this time. Neurologic: She is awake, alert, oriented, able to move all extremities independently. Extremities: There is a 1 to 2+ pretibial edema noted bilaterally. DIAGNOSTIC STUDIES: Today her white count is 6.6, hemoglobin 8, platelet count 436,000. The abdominal wound culture from yesterday has shown no growth on the preliminary report. No imaging reports today. ASSESSMENT AND PLAN: Ms. Elizabeth is being treated for possible abdominal wound infection. Thus far, there is no growth on the wound culture. Since she has been afebrile and her white count has stayed down for the last couple of days, we will go ahead and continue the Zosyn and Zyvox at this time. The patient is swallowing pills without difficulty so we will change the Zyvox from IV to oral at the same dosage. These plans have been discussed with and recommended by Dr. Roach. COMORBIDITIES: For Ms. Elizabeth include that she is elderly and morbidly obese, with diabetes mellitus. Dictated by AZEB Alas for Marcelino Roach MD cc: Marcelino Roach MD [facility]
--- NOTE | 2018-12-06 16:29 | PROGRESS NOTE ---
DATE: 12/06/2018 INTERVAL HISTORY: Patient remains afebrile. Complaining only of slightly increased left leg swelling. No acute events overnight. No other new complaints. REVIEW OF SYSTEMS: A 12 point review of system negative except as per Interval History. DIAGNOSTIC STUDIES: WBC 6.6, hemoglobin 8, hematocrit 25.4, platelets 436,000. Sodium 138, potassium 4.2, bicarbonate 21, BUN 6, creatinine 0.9, glucose 123. Culture of abdominal hematoma: No growth. VITALS: Temperature maximum 98.9 degrees, pulse 62, respirations 22, blood pressure 128/38, O2 saturation 92% on room air. PHYSICAL EXAMINATION: General: No acute distress. Vitals: As above. HEENT: Normocephalic, atraumatic. Moist mucous membranes. Neck: No cervical adenopathy. Cardiovascular: Regular rate and rhythm. No murmurs, rubs, or gallops. Pulmonary: Clear to auscultation bilaterally. No wheezing, rales, or rhonchi. Abdomen: Largely soft. Right upper quadrant incision with slight induration, improved from previous. Isabela now removed. Some largely serous drainage noted. Bowel sounds positive. Extremities: Peripheral pulses intact. No clubbing or cyanosis. Trace to 1+ pitting edema bilaterally, slightly worse in the left, essentially stable from previous, but possibly very slightly increased. Neurologic: Cranial nerves grossly intact. No focal deficits. Psychiatric: Normal mood and affect. Awake, alert, and oriented x3. Skin: No new rashes or lesions identified. ASSESSMENT AND PLAN: 1. Fever and leukocytosis, likely related to hematoma which was evacuated by Surgery couple days ago. No fever since drainage. Culture not growing out any organisms. Currently on Zyvox and Zosyn as per Infectious Disease. Infectious Disease planning on transitioning patient to oral Zyvox. Discharge home once cleared by ID and Surgery and when discharge destination is finalized. 2. Urinary tract infection. Adequately treated with Zosyn. 3. Diabetes. Reasonable control. Monitor. 4. Hypertension, stable with only occasional elevations. Monitor. 5. Gastroesophageal reflux disease. Continue PPI. 6. Physical conditioning and morbid obesity. Continue PT. Diet and exercise have been discussed. The patient and family strongly leaning toward going home. It has been recommended they consider rehabilitation. We will see what they end up deciding. 7. Hypokalemia, improved with repletion. Monitor. 8. 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 We will give an extra dose of Lasix today to see if that helps any.
[2018-12-06] MEDS ORDERED: LASIX PO SCH (21:00)
[2018-12-07] MEDS: HEPARIN SUBQ SCH ×3 (04:17→21:07)
[2018-12-07] MEDS: ZOSYN 3.375 GM in NS 50 ML IV SCH ×4 (04:17→21:05)
[2018-12-07] MEDS: HUMULIN R SUBQ SCH ×4 (06:42→21:07)
[2018-12-07] MEDS: PRILOSEC PO SCH (06:45)
[2018-12-07 07:16] LABS: HEMOGLOBIN 8.4 g/dL (12.0-16.0); MCH 30.9 PG (27-31); MCHC 31.1 g/dL (33-37); MCV 99.3 FL (81-99); MPV 9.5 FL (7.4-10.4); NEUT% 53.4 % (42.2-75.2); PLT 446 X1000 (130-400); RBC 2.72 XMIL (4.2-5.4); WBC 6.62 X1000 (4.8-10.8)
[2018-12-07 07:17] LABS: EOS# 0.29 X1000 (0.0-0.7); EOS% 4.4 % (0.0-10.0); IMM GRAN# 0.03 X1000 (0.0-0.04); IMM GRAN% 0.5 % (0.0-0.5); LYMPH# 2.12 X1000 (1.2-3.4); MONO# 0.64 X1000 (0.11-0.59); MONO% 9.7 % (1.7-9.3); NEUT# 3.54 X1000 (1.4-6.5)
[2018-12-07 07:41] LABS: AGAP 12; BUN 7 mg/dL (8-22); CALCIUM 8.8 mg/dL (8.8-10.2); CHLORIDE 102 mmol/L (98-107); COSMO 281; ESTIMATED GFR > 60; GLUCOSE 96 mg/dL (70-104); POTASSIUM 3.6 mmol/L (3.5-5.1); SODIUM 142 mmol/L (136-145); TCO2 28 mmol/L (25-35)
[2018-12-07] MEDS: DUONEB (A & A) INH PRN ×3 (07:51→23:42)
[2018-12-07] MEDS: GLUCOPHAGE PO SCH ×2 (09:08→16:32)
[2018-12-07] MEDS: LASIX PO SCH (09:08)
[2018-12-07] MEDS: ZYVOX PO SCH ×2 (09:08→21:06)
[2018-12-07] MEDS: NEURONTIN PO SCH ×3 (09:08→21:06)
[2018-12-07] MEDS: NORVASC PO SCH (09:09)
[2018-12-07] MEDS: NORCO-5 PO PRN ×2 (09:09→21:06)
[2018-12-07] MEDS: TOPROL XL PO SCH (09:09)
[2018-12-07] MEDS: KLOR-CON PO SCH (09:10)
--- NOTE | 2018-12-07 09:23 | PROGRESS NOTE ---
DATE: 12/07/2018 Ms. Suzy Elizabeth is an 83-year-old morbidly obese black female status post open cholecystectomy now with a subcutaneous wound infection. Her lateral aspect of her wound is open and is still draining some thick fluid. I changed the dressing this morning. Her white blood cell count is normal. She is on Zosyn. OBJECTIVE: Her heart rate is 75, blood pressure 144/53, O2 saturation 93%. She is afebrile. She is voiding without Gentile and she is eating a regular diet. Her hematocrit is 27%. Electrolytes are within normal limits with a BUN of 7 and a creatinine of 1.0. The culture from her abdomen showed no growth. We will plan to continue local wound care and IV antibiotics. cc: Sobia Hernandez MD
[2018-12-07] MEDS: COLCRYS PO SCH (16:30)
--- NOTE | 2018-12-07 16:43 | PROGRESS NOTE ---
DATE: 12/07/2018 INTERVAL HISTORY: The patient remains afebrile. Leg edema stable. No new complaints. No acute events overnight. REVIEW OF SYSTEMS: Twelve-point review negative except as per interval history. LABORATORY: WBCs 6.6, hemoglobin 8.4, hematocrit 27.0, platelets 446. Basic metabolic panel unremarkable. VITALS: T-max 98.9, pulse 75, respirations 16, blood pressure 144/53, O2 saturation 93% on room air. PHYSICAL EXAMINATION: General: No acute distress. Vitals: As above. HEENT: Normocephalic, atraumatic. Moist mucous membranes. Neck: No cervical adenopathy. Cardiovascular: Regular rate and rhythm. No murmurs, rubs, or gallops. Pulmonary: Clear to auscultation bilaterally. No wheezing, rales, or rhonchi noted. Abdomen: Right upper quadrant incision with stella removed. Still some serous drainage, but slightly decreased. Bowel sounds positive. Extremities: Peripheral pulses intact. No clubbing or cyanosis. Has 1+ pitting edema bilaterally, slightly increased on the left, pretty much unchanged from previous. Neurologic: Cranial nerves grossly intact. No focal deficits. Psychiatric: Normal mood and affect. Awake, alert, oriented x3. Skin: No rashes or new lesions identified. ASSESSMENT AND PLAN: 1. Fever and leukocytosis, likely related to hematoma which was evacuated. No fever since evacuation. Cultures no growth. On Zyvox and Zosyn as per Infectious Disease. Infectious Disease tentatively planning on transitioning to oral Zyvox. Anticipate discharge home once cleared by Infectious Disease and Surgery. 2. Urinary tract infection, status post treatment. 3. Diabetes, good control. Monitor. 4. Hypertension. It is largely stable. Monitor. 5. Gastroesophageal reflux disease. Continue proton pump inhibitor. 6. Morbid obesity and physical deconditioning. Continue physical therapy. Diet and exercise have been discussed. Patient and family leaning toward going home at discharge. 7. Hypokalemia. Remains improved after repletion. Monitor.
[2018-12-08] MEDS: NORCO-5 PO PRN ×3 (00:23→20:40)
[2018-12-08] MEDS: HEPARIN SUBQ SCH ×3 (05:13→20:39)
[2018-12-08] MEDS: ZOSYN 3.375 GM in NS 50 ML IV SCH ×5 (05:13→21:12)
[2018-12-08] MEDS: PRILOSEC PO SCH ×2 (05:55→06:05)
[2018-12-08] MEDS: HUMULIN R SUBQ SCH ×4 (06:52→21:13)
[2018-12-08] MEDS: DUONEB (A & A) INH PRN (08:46)
[2018-12-08] MEDS: LASIX PO SCH (09:06)
[2018-12-08] MEDS: TOPROL XL PO SCH (09:06)
[2018-12-08] MEDS: NEURONTIN PO SCH ×3 (09:06→20:40)
[2018-12-08] MEDS: COLCRYS PO SCH (09:06)
[2018-12-08] MEDS: GLUCOPHAGE PO SCH ×2 (09:06→18:47)
[2018-12-08] MEDS: ZYVOX PO SCH ×2 (09:06→20:40)
[2018-12-08] MEDS: KLOR-CON PO SCH (09:06)
[2018-12-08] MEDS: NORVASC PO SCH (09:06)
--- NOTE | 2018-12-08 09:08 | PROGRESS NOTE ---
DATE: 12/08/2018 SUBJECTIVE: Ms. Suzy Elizabeth is a patient of Dr. Acosta. She has had an open cholecystectomy and she has been complicated by a superficial wound infection that has been opened. It is draining purulence and we are dressing it daily with IV antibiotics. She is tolerating a diet. She is good about sitting up in her chair. Her sugar is well controlled. Will continue wound care and IV antibiotics. cc: Sobia Hernandez MD
[2018-12-08] MEDS ORDERED: CALMOSEPTINE OINTMENT TOP PRN (12:01)
--- NOTE | 2018-12-08 14:42 | PROGRESS NOTE ---
DATE: 12/08/2018 INTERVAL HISTORY: Patient with minimally low oxygen saturations early this morning but have been stable since. The patient denies dyspnea, increased cough, fever, chills, chest pain. No new complaints. No other acute events overnight. Pain well controlled. REVIEW OF SYSTEMS: Twelve point review of systems negative except as per interval history. LABS: Glucose 112. VITALS: T-max 98.8 degrees, pulse 69, respirations 18, blood pressure 120/58, O2 saturation 98% on room air. PHYSICAL EXAMINATION: General: No acute distress. Obese. Vitals: As above. HEENT: Normocephalic, atraumatic. Moist mucous membranes. No cervical adenopathy. Cardiovascular: Regular rate and rhythm. No murmurs, rubs, or gallops. Pulmonary: Clear to auscultation bilaterally. No wheezing, rales, or rhonchi noted. Abdomen: Right upper quadrant incision bandaged. Some scant serous drainage. Bowel sounds positive. Extremities: Peripheral pulses intact. No clubbing or cyanosis. There is 1+ pitting edema bilaterally, similar to previous. Neurologic: Cranial nerves grossly intact. No focal deficits. Psychiatric: Normal mood and affect. Awake, alert, oriented x3. Skin: No new rashes or lesions identified. ASSESSMENT AND PLAN: 1. Right upper quadrant infected hematoma. Patient had a fever and leukocytosis despite antibiotics but then surgery drained a large right upper quadrant subcutaneous hematoma. Since then, she has had no fevers. Cultures did not grow out anything. Remains on Zyvox and Zosyn as per infectious disease. Infectious disease tentatively planning on transitioning to oral Zyvox at discharge. Anticipate discharge home once cleared by infectious disease and surgery. 2. Urinary tract infection, status post treatment. 3. Diabetes. Good control. Monitor. 4. Hypertension, largely stable. Monitor. 5. Gastroesophageal reflux disease. Continue proton pump inhibitor. 6. Morbid obesity and physical deconditioning. Continue physical therapy while here. Diet and exercise encouraged. The patient and family plan on taking her home at discharge. 7. Hypokalemia. Remains resolved on last check. Monitor. 8. Minimally low oxygen overnight. No respiratory symptoms and doing well on room air now. Suspect the patient has underlying sleep apnea. Encourage outpatient sleep study. We will obtain a chest x-ray to evaluate but low suspicion for new pathology at this point.
--- NOTE | 2018-12-08 15:00 | Diag Imaging Result Doc PS360 ---
EXAM: CHEST-PORTABLE INDICATION: cough, hypoxia TECHNIQUE: One view COMPARISON: 11/30/2018 FINDINGS: Inspiration is somewhat suboptimal. The lungs are grossly clear. There is no discrete pleural fluid collection or pneumothorax. There is stable cardiomegaly. Central vasculature is mildly prominent very similar to the previous study suggesting possible mild pulmonary venous congestion. This may be chronic. No new consolidation is identified. IMPRESSION: Stable chest. Electronically signed by Jaylan Mota 12/08/2018 2:57 PM
[2018-12-09] MEDS: NORCO-5 PO PRN ×3 (03:56→21:35)
[2018-12-09] MEDS: ZOSYN 3.375 GM in NS 50 ML IV SCH ×2 (05:06→12:29)
[2018-12-09] MEDS: PRILOSEC PO SCH ×2 (05:07→06:37)
[2018-12-09] MEDS: HEPARIN SUBQ SCH ×3 (05:07→21:34)
[2018-12-09] MEDS: HUMULIN R SUBQ SCH ×3 (06:37→21:16)
[2018-12-09 06:43] LABS: BASO# 0.01 X1000 (0.0-0.2); BASO% 0.2 % (0.0-0.8); EOS# 0.29 X1000 (0.0-0.7); EOS% 4.7 % (0.0-10.0); HEMOGLOBIN 8.5 g/dL (12.0-16.0); IMM GRAN# 0.02 X1000 (0.0-0.04); IMM GRAN% 0.3 % (0.0-0.5); LYMPH% 32.2 % (20.5-51.1); MCH 31.1 PG (27-31); MCHC 31.5 g/dL (33-37); MCV 98.9 FL (81-99); MONO# 0.57 X1000 (0.11-0.59); MONO% 9.2 % (1.7-9.3); MPV 8.9 FL (7.4-10.4); NEUT# 3.32 X1000 (1.4-6.5); NEUT% 53.4 % (42.2-75.2); PLT 431 X1000 (130-400); RBC 2.73 XMIL (4.2-5.4); RDW 14.2 % (11.5-14.5); WBC 6.21 X1000 (4.8-10.8)
--- NOTE | 2018-12-09 07:05 | GENERAL SURGERY PROGRESS NOTE ---
DATE: 12/09/2018 SUBJECTIVE: Patient doing about the same. The daughter reports a persistent cough. OBJECTIVE: Vital Signs: The patient is currently afebrile. Her vital signs are stable. General Examination: No acute distress. Cardiovascular: Regular rate and rhythm. Lungs: No audible wheezes. No coughing. Abdomen: Incision okay. Some of the eschar in the medial aspect is peeling off. Otherwise, wound appears to be doing okay. ASSESSMENT AND PLAN: An 83-year-old female status post open cholecystectomy. Postoperative state. At this time, the patient seems to be doing about the same. I think the patient would probably benefit from going to rehab but I am not sure the daughter is amenable to that at this point. She will need to continue local wound care. Discussed new changes with the nursing staff. Continue supportive care and pulmonary toiletry. She does not have any obvious signs of pneumonia on chest x-ray but we will continue to monitor. Keep her on antibiotics for right now. cc: Heladio Acosta MD
[2018-12-09 07:36] LABS: AGAP 11; BUN 6 mg/dL (8-22); CALCIUM 8.9 mg/dL (8.8-10.2); CHLORIDE 104 mmol/L (98-107); COSMO 282; ESTIMATED GFR > 60; GLUCOSE 95 mg/dL (70-104); POTASSIUM 3.7 mmol/L (3.5-5.1); SODIUM 143 mmol/L (136-145); TCO2 28 mmol/L (25-35)
[2018-12-09] MEDS: GLUCOPHAGE PO SCH ×2 (09:32→16:46)
[2018-12-09] MEDS: KLOR-CON PO SCH (09:32)
[2018-12-09] MEDS: LASIX PO SCH (09:32)
[2018-12-09] MEDS: NEURONTIN PO SCH ×3 (09:32→21:34)
[2018-12-09] MEDS: ZYVOX PO SCH (09:32)
[2018-12-09] MEDS: TOPROL XL PO SCH (09:32)
[2018-12-09] MEDS: COLCRYS PO SCH (09:32)
[2018-12-09] MEDS: NORVASC PO SCH (09:35)
[2018-12-09] MEDS ORDERED: TESSALON PO PRN (11:17)
--- NOTE | 2018-12-09 15:06 | PROGRESS NOTE ---
DATE: 12/09/2018 INTERVAL HISTORY: The patient is largely stable. Does complain of some increased nonproductive cough. No dyspnea. No fever, chills, chest pain. Remains afebrile. REVIEW OF SYSTEMS: Twelve point review of systems negative except as per interval history. LABS: WBC 6.2, hemoglobin 8.5, hematocrit 27.0, platelet 431,000. Basic metabolic unremarkable. BNP 788. IMAGING: Chest x-ray with mild pulmonary venous congestion that is largely unchanged from previous. VITAL SIGNS: T-max 99.0 degrees, pulse 65, respirations 16, blood pressure 161/61, O2 saturation 100% on 2 L by nasal cannula. PHYSICAL EXAMINATION: General: No acute distress. Vital signs: As above. HEENT: Normocephalic, atraumatic. Moist mucous membranes. No cervical adenopathy. Cardiovascular: Regular rate and rhythm. No murmurs, rubs, or gallops. Pulmonary: Clear to auscultation within the limits of body habitus. Abdomen: Right upper quadrant incision bandaged and stable. Bowel sounds positive. Extremities: Peripheral pulses intact. No clubbing or cyanosis. There is 1+ pitting edema bilaterally, slightly greater on the left, which is stable. Neurologic: Cranial nerves grossly intact. No focal deficits. Psychiatric: Normal mood and affect. Awake, alert, orient x3. Skin: No new rashes or lesions identified. ASSESSMENT AND PLAN: 1. Right upper quadrant infected hematoma. Patient with recent laparoscopic cholecystectomy. Later had a fever and leukocytosis despite antibiotics but then surgery identified and drained a large right upper quadrant acute hematoma. Since then, she has had no further fevers. Culture did not grow out anything. Remains on Zyvox and Zosyn as per Infectious Disease. ID planning on transitioning to oral Zyvox at discharge. 2. Urinary tract infection, status post treatment. 3. Diabetes. Reasonable control. Monitor. Occasional moderate elevations but overall okay. Monitor. 4. Gastroesophageal reflux disease. Continue PPI. 5. Increased cough. Last chest x-ray largely unremarkable, but BNP was found to be elevated. Patient unaware of ever having an echo. I do not see any echo in our system. We will obtain echocardiogram and give her an extra dose Lasix this evening. Suspect elevated BNP due to pulmonary hypertension from sleep apnea and morbid obesity. 6. Morbid obesity and physical deconditioning. Continue PT while inpatient. Diet and exercise encouraged. Patient and family are planning on going home at discharge. 7. Hypokalemia. Remains resolved after repletion. Monitor while here.
--- NOTE | 2018-12-09 17:14 | INFECTIOUS DISEASE PROGRESS NO ---
DATE: 12/09/2018 PRESENT ILLNESS: The patient currently is being treated for a post cholecystotomy hematoma with resulting fever and leukocytosis. It appears all of that has resolved. MEDICATIONS: The patient is on a combination of Zyvox and Zosyn. PHYSICAL EXAMINATION: Vital Signs: Temperature is 97.9 degrees, pulse 67, respirations 16, blood pressure 161/61. General: This is an obese, elderly female. She looks much better today than she did last week. Head/eyes/ears/nose/throat: She can hear my spoken words and see near objects. She does not have any white coating on her tongue. Neck: She does not have any pain in her neck when she moves her head. Lungs: Clear to auscultation. Cardiovascular: Heart rate is regular. Abdomen: Soft and nontender. I removed the dressing from her right upper quadrant wound. The wound is no longer indurated. There is only a small opening and there is a minimal serosanguineous drainage. There is no tenderness either. Neurologic: The patient is awake. She is able to walk. She does not have any tremor. LAB AND X-RAY: CBC shows a white count of 6210, hemoglobin 8.5, and platelet count 431,000. Creatinine is 1. GFR is greater than 60. An abdominal wound culture is negative. Chest x-ray showed no infiltrate. There is possibly some pulmonary venous congestion. ASSESSMENT AND PLAN: The patient's wound is healing well. I do not think that any more antibiotics are necessary and therefore I have discontinued Zyvox and Zosyn. Dr. Acosta, Dr. Bianchi and myself think the patient can be discharged home and she very much wants to go home. I am going to stop her antibiotics today and I am signing off her case and I am available to see the patient on a p.r.n. basis. COMORBIDITIES: She is elderly, she is morbidly obese and she is a diabetic. cc: Marcelino Roach MD
[2018-12-10 04:40] VITALS: BP 164/57
[2018-12-10] MEDS: HUMULIN R SUBQ SCH ×3 (07:40→11:16)
[2018-12-10] MEDS: PRILOSEC PO SCH (07:56)
[2018-12-10] MEDS: HEPARIN SUBQ SCH (07:57)
[2018-12-10] MEDS: GLUCOPHAGE PO SCH (08:01)
[2018-12-10] MEDS: COLCRYS PO SCH (08:01)
[2018-12-10] MEDS: NEURONTIN PO SCH (08:02)
[2018-12-10] MEDS: TOPROL XL PO SCH (08:02)
[2018-12-10] MEDS: LASIX PO SCH (08:02)
[2018-12-10] MEDS: KLOR-CON PO SCH (08:02)
[2018-12-10] MEDS: NORVASC PO SCH (08:03)
[2018-12-10] MEDS: NORCO-5 PO PRN (08:03)
--- NOTE | 2018-12-10 11:00 | ECHO REPORT ---
ORDER DATE: 12/09/2018 INDICATION: Cough, elevated proBNP. FINDINGS: 1. Right atrium appears normal in size. 2. No significant tricuspid regurgitation identified. Insufficient data to estimate RV systolic pressure. 3. Probable normal RV systolic function on limited views of the right ventricle. 4. Trace pulmonic insufficiency. 5. Normal left atrial size at 3.1 cm. 6. No mitral valve prolapse. No significant mitral regurgitation was identified. 7. Normal LV size of 3.8 cm. Normal wall thicknesses with a posterior and interventricular septal wall thickness of 1 cm each. Normal to hyperdynamic LV systolic function with an estimated EF greater than 70%. There did appear to be a mild elevation of the left ventricular outflow tract gradient on Valsalva of 20 mmHg. There was not one present on rest. 8. Aortic valve appears to open well with no evidence of stenosis or insufficiency. 9. Aorta appears normal in visualized segments. 10. No pericardial effusion seen. cc: MD Philomena Chavira MD
--- NOTE | 2018-12-10 12:52 | GENERAL SURGERY PROGRESS NOTE ---
DATE: 12/10/2018 SUBJECTIVE: The patient seems to be doing okay. OBJECTIVE: Vital Signs: The patient is currently afebrile. Her vital signs are stable. General: No acute distress. Cardiovascular: Regular rate and rhythm. Lungs: Grossly clear. Abdomen: Soft. Wound healing. ASSESSMENT AND PLAN: An 83-year-old female status post open cholecystectomy. Postoperative state. At this time, the patient is probably ready for discharge. Will make sure it is okay with the hospitalist. She did get an echocardiogram yesterday. Will need to follow up with those results. Otherwise, she can probably be discharged with home health. Infectious Disease has signed off and stopped her antibiotics. cc: MD Philomena Aranda MD
--- NOTE | 2018-12-11 08:05 | DISCHARGE SUMMARY ---
ADMISSION DATE: 11/23/2018 DISCHARGE DATE: 12/10/2018 ADMITTING PHYSICIAN: Dr. Heladio Acosta. CONSULTATIONS: 1. Hospitalist Service for medical management. 2. Dr. Marcelino Roach with Infectious Disease. PROCEDURE: The patient underwent open cholecystectomy on 11/22/2018. BRIEF HISTORY AND COURSE OF STAY: The patient is an 83-year-old morbidly obese female who presented initially with complaints of cholecystitis. She was admitted and underwent previously described procedure. The procedure itself was complicated by difficult anatomy and adhesions. We had to convert to an open procedure. Given this, she was admitted to the hospital. We had the hospitalist involved from the start to help with medical management. Initially, patient seemed to progress well, but then started developing fevers. We had a CT scan done on 11/27, which did not show any intra-abdominal process, but she continued to have fevers. We worked her up fully. Blood cultures were negative. Chest x-ray and urinalysis were essentially normal. We reviewed the CT scan on 12/03/2018, and there was a hematoma that was expanding at her incision from her subcostal incision. At that point, we elected to open it up and drain what looked like an old hematoma. There was no purulence with it. No cultures grew from the wound itself, but the patient's fever stopped. At that point, we continued to monitor her closely. She had been progressed to a regular diet, but she was very deconditioned. We got physical therapy to help mobilize her. She also did complain of some leg pain which got an ultrasound which did not show DVT, and an x-ray did not show any fractures. We continued to apply supportive care to the patient, and she seemed to improve and get some of her strength back. We had long discussions with the family about options for discharge as far as rehab versus [facility] facility versus home with home health. The family at that point after long discussions wanted to proceed home with home health. We made the arrangements. Infectious Disease had been consulted in the interim, and had started the patient on multiple antibiotics. By the day of discharge, she had been afebrile for several days. It is felt that she could stop her antibiotics per Infectious Disease recommendations. On the day of discharge, she was mobile although somewhat limited, eating regular food, and having bowel movements. Incision was healing, although we were doing local wound care. It was felt that she would be safe to be discharged home with home health, and to her family. All arrangements were made. DISCHARGE CONDITION: Stable. DISPOSITION: Home. FOLLOW-UP INSTRUCTIONS: Patient told to follow up with Dr. Acosta in 1 to 2 weeks and follow up with her primary care physician. DISCHARGE MEDICATIONS: Patient given prescription for pain medicine and to resume her home medicines. DISPOSITION: Local wound care instructions were given to the patient, and she was told to follow up with Dr. Acosta for wound care. cc: MD Philomena Aranda MD
== END 2018-12-10 12:17 | disposition home health service (06) | DRG 415 ==
LOC: PAT 05:08 → ICU 05:08 → 4N 11-23 15:25
PROVIDERS: ADMIT Internal Medicine; ATTEND Surgery
CPT/HCPCS: 71010; 71045; 71260; 73590; 74177; 80048; 80053; 80061; 81001; 82565; 82948; 83036; 83735; 83880; 84100; 84439; 84443; 84520; 85025; 85027; 87040; 87070; 87077; 87088; 87186; 87324; 87449; 88304; 93005; 93010; 93306; 93971; 94640; 94760; 94761; 94799; 97110; 97116; 97162; 97530; A9270; C8929; J0330; J0694; J1170; J1644; J1940; J2020; J2270; J2370; J2405; J2543; J2550; J3010; J3475; J3480; J7030; J7120; Q9957; Q9967; S0020; XXXXX